=== PATIENT | male | born 1955 | race Caucasian/White ===

== ENCOUNTER 2019-12-05 12:19 | Emergency (ER) | payer MEDICARE, MEDICAID, SELFPAY ==
[2019-12-05 13:00] VITALS: BP 133/82; PULSE 86; RESP 18; TEMP 36.8; O2SAT 96; BMI 27.1
--- NOTE | 2019-12-05 13:13 | ED_ITS ---
Entered by Ping Morales, acting as scribe for Documented by User: Selma Oshea MD 01/21/20 20:37 HPI - General Adult General: Source: patient Mode of arrival: ambulatory Limitations: no limitations History of Present Illness: HPI narrative: 64 yo male presents with a sore throat and possible thrush. pt states he has had a hx of thrush. pt states this started a few days ago and increased pain. pt states he has not been on recent antibotics or any steroids. pt denies any other symptoms at this time. complaint: thrush and sore throat Onset (ago): day(s) Location: mouth Radiation: non-radiation Severity: moderate Quality: constant Pain Consistency: constant Relieving factors: none Exacerbating factors: none Associated symptoms: Reports cough and rash Treatments prior to arrival: none Review of Systems General: Reports: 10 or more systems reviewed and unremarkable except in HPI and below ENMT: Reports: throat pain and dry mouth Resp: Reports: productive cough Skin/Breast: Reports: rash Course Vital Signs: Vital signs: Vital Signs Temperature 98.3 F 12/05/19 13:00 Pulse Rate 104 H 12/05/19 16:34 Respiratory Rate 16 12/05/19 16:34 Blood Pressure 114/79 12/05/19 16:34 Pulse Oximetry 95 12/05/19 16:34 [facility] - General Adult Lab Data: Labs: Lab Results 12/05/19 Range/Units 13:44 Group A Strep Rapi d Negative (Negative) Discharge Plan Discharge Patient Disposition: Home, Self-Care Clinical Impression: Candidiasis of mouth Condition: Stable Discharge Orders: Discharge Order (Routine); Ordered 12/05/19 Ordered By: Leland Coronado Referrals: Jeremie Lee MD [Primary Care Provider] - Discharge Diet: Usual diet Discharge Activity: Resume usual activity Discharge Date/Time: 12/05/19 16:35 Coding Level of Care Code ED Equity Research Analyst for Chg Fwd Exam Problem Focused Documented by User: Leland Coronado DO 01/21/20 15:50 Physical Exam Const: COMMON NORMALS: no apparent distress GENERAL APPEARANCE: cooperative and comfortable ORIENTATION/CONSCIOUSNESS: Yes awake, Yes oriented to person, Yes oriented to place and Yes oriented to time HENMT: COMMON NORMALS: normocephalic, head/scalp atraumatic, hearing grossly normal bilaterally, external ears normal, EAC's normal, TM's normal bilaterally, nasal mucous membranes and turbinates normal, moist oral mucous membranes and oropharynx normal HEAD & SCALP: normocephalic and atraumatic NOSE: nasal mucous membranes and turbinates normal EXTERNAL EAR: Yes external ears normal EXTERNAL AUDITORY CANAL: EAC's normal TYMPANIC MEMBRANE: TM's normal bilaterally OTHER: With erythema posterior pharynx no evidence of any punctate lesions or ulcers. There is no evidence of any obvious white adherent patches suggestive of Rhea Eye: COMMON NORMALS: PERRL, EOMs intact bilaterally, conjunctivae normal and no scleral icterus CONJUNCTIVA: Yes conjunctivae normal PUPIL: Yes PERRL Neck/C-Spine: COMMON NORMALS: full ROM, no lymphadenopathy, supple and no JVD Lymph: LYMPHATIC: no lymphadenopathy noted and no lymphedema noted Resp: COMMON NORMALS: normal respiratory effort, no retractions, no use of accessory muscles and clear to auscultation bilaterally AUSCULTATION: clear to auscultation bilaterally Cardio: COMMON NORMALS: no JVD, regular rate, regular rhythm and no murmurs RATE: regular rate RHYTHM: regular rhythm GI: COMMON NORMALS: soft to palpation and no hepatosplenomegaly AUSCULTATION: Yes normoactive bowel sounds PALPATION: Yes soft, No tender, No guarding and Yes no hepatosplenomegaly Extremity: COMMON NORMALS: normal to inspection, normal capillary refill, no clubbing, cyanosis or edema, no calf tenderness and no pedal edema Neuro: SENSORIUM/ORIENTATION: Yes oriented to person, Yes oriented to place and Yes oriented to time Skin: COMMON NORMALS: no rashes or lesions noted GENERAL SKIN EXAM: no rashes or lesions noted Course ED course: Strep negative. Wet mount positive for candidiasis patient advised to use nystatin swish and spit every 6 hours 10 days. Patient seen and examined and disposition from the ER by myself. Unfortunately due to some complications with the EMR Dr. Oshea got assigned as the author of this chart she did not see the patient or examine or treat the patient in any way associated with this ER visit. Vital Signs: Vital signs: Vital Signs Temperature 98.3 F 12/05/19 13:00 Pulse Rate 104 H 12/05/19 16:34 Respiratory Rate 16 12/05/19 16:34 Blood Pressure 114/79 12/05/19 16:34 Pulse Oximetry 95 12/05/19 16:34 MDM - General Adult Lab Data: Labs: Lab Results 12/05/19 Range/Units 13:44 Group A Strep Rapi d Negative (Negative) Discharge Plan Discharge Patient Disposition: Home, Self-Care Clinical Impression: Candidiasis of mouth Condition: Stable Discharge Orders: Discharge Order (Routine); Ordered 12/05/19 Ordered By: Leland Coronado Referrals: Jeremie Lee MD [Primary Care Provider] - Discharge Diet: Usual diet Discharge Activity: Resume usual activity Discharge Date/Time: 12/05/19 16:35 Coding Level of Care Code ED Equity Research Analyst for Chg Fwd Exam Problem Focused The documentation recorded by the Andrew lane Bridget Annette, accurately reflects the service I personally performed and the decisions made by , Selma Oshea MD Dec 05, 2019 12:19
[2019-12-05 14:12] LABS: Rapid Strep A Test Negative (Negative)
[2019-12-05 16:34] VITALS: BP 114/79; PULSE 104; RESP 16; O2SAT 95
== END 2019-12-05 16:35 | disposition home or self-care (01) ==
PROVIDERS: Emergency Provider Family Medicine; Family Provider Family Medicine; PCP Family Medicine
DX: B37.0 Candidal stomatitis (principal)
CPT/HCPCS: 87081; 87210; 87880; 99281

== ENCOUNTER 2020-02-08 15:05 | Outpatient (CLI) | payer MEDICARE, MEDICAID, SELFPAY ==
--- NOTE | 2020-02-08 15:14 | USCV_ITS ---
Shimon Alvarez Age: 65 Gender: M : 1955 Exam Date: 02/08/2020 15:21 Ordering Phys: NOT ON FILE, DOCTOR XX Technologist: [place] [facility] [place]: PVD RIGHT LEFT Brachial 137.00 mmHg Brachial 124.00 mmHg Pressure (mmHg) Waveform Pressure (mmHg) Waveform 156.00 HYDROGRAPHIC SURVEYOR 134.00 113.00 DPA 137.00 1.14 Ankle/Brachial Index 1.00 111.00 Pre-Exercise Toe Pressure 132.00 0.81 Pre-Exercise Toe/Brachial Index 0.96 FINDINGS Normal resting ABIs and TBIs bilaterally CONCLUSIONS No evidence of any significant arterial obstruction, based on the above findings. Dr Berlin Liriano MD [facility] (Electronically Signed) Final Date: 11 February 2020 09:21 S
--- NOTE | 2020-02-08 16:30 | USCV_ITS ---
Shimon Alvarez Age: 65 Gender: M : 1955 Exam Date: 02/08/2020 15:47 Ordering Phys: NOT ON FILE, DOCTOR XX Technologist: Nicole Salamanca [place] [facility] [place]: HISTORY OF RT CEA Risk Factors: Previous Vascular Surgery: Right Brachial BP: / Left Brachial BP: / Right Left Velocity (cm/s) Spectral Plaque Velocity (cm/s) Spectral Plaque Syst/Diast Broadening Syst/Diast Broadening 102.50/22.10 Prox CCA 88.00 / 20.50 104.70/24.30 Mid CCA 110.20/ 28.20 89.30/ 15.40 Distal CCA 67.50 / 15.40 67.60/ 21.00 Prox ICA 81.20 / 29.90 Hetro 56.70/ 18.25 Mid ICA 191.00/ 56.30 Hetro 81.60/ 28.00 Distal ICA 105.60/ 35.70 201.50 ECA 69.20 Hetro 0.78 ICA/CCA 1.73 Antegrade Vertebral Antegrade 35.00/ 12.80 cm/s 22.20/ 11.10 cm/s Tri Subclavian Bi 94.00 147.2 0 FINDINGS Extensive atherosclerotic change of the left common carotid bifurcation. CONCLUSIONS No stenois or occlusion of the right carotid bifurcation. 60-79% stenosis of the left carotid bifurcation based on the elevated left ICA velocity of 191 cm/sec. Dr. Arianna Finley MD (Electronically Signed) Final Date: 08 February 2020 16:22 S
== END 2020-02-08 15:06 | disposition home or self-care (01) ==
LOC: RAD 15:11
PROVIDERS: Family Provider Family Medicine; PCP Family Medicine; Visit Provider Family Medicine
DX: I73.9 Peripheral vascular disease, unspecified (principal); I65.22 Occlusion and stenosis of left carotid artery
CPT/HCPCS: 93880; 93922

== ENCOUNTER → 2020-10-07 10:03 | Outpatient (BNVA) | payer MEDICARE, MEDICAID, SELFPAY | PROVIDERS: Family Provider Family Medicine; PCP Family Medicine; Visit Provider Urology | DX: R39.15 Urgency of urination (principal); N35.912 Unspecified bulbous urethral stricture, male; R33.9 Retention of urine, unspecified; N40.0 Benign prostatic hyperplasia without lower urinary tract symptoms | CPT/HCPCS: 81003 ==

== ENCOUNTER 2020-12-30 14:33 | Outpatient (CLI) | payer MEDICARE, MEDICAID, SELFPAY ==
--- NOTE | 2020-12-30 15:00 | USCV_ITS ---
Shimon Alvarez Age: 65 Gender: M : 1955 Exam Date: 12/30/2020 15:05 Ordering Phys: Lalit Herrera M.D ([email or web address]) Technologist: Sree Li Exam Location[place] [facility] [place] Indication: CAROTID STENOSIS Risk Factors: Previous Vascular Surgery: RCEA Right Brachial BP: / Left Brachial BP: / Right Left Velocity (cm/s) Spectral Plaque Velocity (cm/s) Spectral Plaque Syst/Diast Broadening Syst/Diast Broadening 114.70/16.50 Prox CCA 206.60/ 29.50 125.70/25.40 Mid CCA 155.10/ 34.20 133.40/14.30 Distal CCA 128.80/ 19.70 57.80/ 11.90 Prox ICA 222.20/ 51.80 70.20/ 18.90 Mid ICA 225.50/ 50.10 79.00/ 19.00 Distal ICA 115.00/ 12.50 241.20 ECA 57.00 0.63 ICA/CCA 1.45 Antegrade Vertebral Antegrade 51.90/ 11.80 cm/s 30.10/ 9.40 cm/s Tri Subclavian Tri 125.7 151.2 0 0 FINDINGS Comparison:. 01/10/20. Diffuse bilateral scattered calcified plaque and intimal thickening throughout the common carotid arteries and extending through the bifurcation. Moderate elevation of left ICA velocity and turbulence. Prior right CEA, no recurrent stenosis. Antegrade vertbral arteries. CONCLUSIONS Left ICA stenosis 50-69%. Right ICA stenosis < 50%. Dr. Tracy Santoyo DO (Electronically Signed) Final Date: 31 December 2020 10:33 S
== END 2020-12-30 14:34 | disposition home or self-care (01) ==
LOC: RAD 14:42
PROVIDERS: PCP Family Medicine; Visit Provider Internal Medicine
DX: I65.23 Occlusion and stenosis of bilateral carotid arteries (principal)
CPT/HCPCS: 93880

== ENCOUNTER 2021-02-13 13:09 | Outpatient (CLI) | payer MEDICARE, MEDICAID, SELFPAY ==
--- NOTE | 2021-02-13 13:18 | CT_ITS ---
WS: [id number] LDCT LUNG CANCER SCREENING TECHNIQUE: Noncontrast CT of the chest with coronal and sagittal reformatted images. CLINICAL INFORMATION: HX OF TOBACCO USE COMPARISON: CT chest 4 26,012 DLP: 54.19 mGy.cm DIvol: 1.[address] scans at [facility] use at least one of these dose optimization techniques: automat ed exposure control; mA and/or kV adjustment per patient size (includes targeted exams where dose is matched to clinical indication); or iterative reconstruction. FINDINGS: Mild chronic emphysematous changes. Bronchiectasis in the lung bases with a few inflammatory opacitie s.. A few calcified granulomas. No mediastinal or hilar lymphadenopathy. A few calcified mediastinal and hilar lymph nodes. No axillary lymphadenopathy. Coronary calcification. CT/CT lung screening 33142 IMPRESSION: LUNG-RADS: 2-Benign Appearance or Behavior FOLLOW UP: 12 Month: Continue annual screening with LDCT
== END 2021-02-13 13:10 | disposition home or self-care (01) ==
LOC: RAD 13:15
PROVIDERS: PCP Family Medicine; Visit Provider Nurse Practitioner
DX: Z12.2 Encounter for screening for malignant neoplasm of respiratory organs (principal); Z87.891 Personal history of nicotine dependence; J47.9 Bronchiectasis, uncomplicated; J84.10 Pulmonary fibrosis, unspecified; I25.10 Atherosclerotic heart disease of native coronary artery without angina pectoris
CPT/HCPCS: 71271

== ENCOUNTER → 2021-07-16 12:04 | Outpatient (BNVA) | payer MEDICARE, MEDICAID, SELFPAY | PROVIDERS: PCP Family Medicine; Visit Provider Surgery | DX: Z20.822 Contact with and (suspected) exposure to COVID-19 (principal) | CPT/HCPCS: 87635 ==

== ENCOUNTER 2021-07-21 06:11 | Day surgery (SDC) | payer MEDICARE, MEDICAID, SELFPAY ==
[2021-07-20 14:04] VITALS: BMI 27.3
[2021-07-21] VITALS (7 sets, daily range): BP systolic 80–108; BP diastolic 38–54; PULSE 60–68; RESP 12–18; TEMP 36.3–36.8; O2SAT 93–100
--- NOTE | 2021-07-21 06:08 | P.HP_ITS ---
Same Day Surgery H&P Indication for Procedure/HPI DATE OF PROCEDURE: July 21, 2021 CHIEF COMPLAINT/INDICATIONFOR SURGICAL PROCEDURE: I have a spot on my back PREOP DIAGNOSIS: Upper back skin MASS PLANNED PROCEDRUE: Operation Date: 07/21/21 07:10 Proposed Procedures p :EXCISION OF UPPER BACK AND LEFT LOWER EXTREMITY SKIN LESIONS 69738 L98.9(Left) - Luis Marte MD Mr. Alvarez is a pleasant 66 years old gentleman well-known to me from previous clinical encounters, well-known to have HIV and undergoing treatment and managem ent with HIV physician in [facility]. Presents today as a referral for a spot on his upper back and another one on the left lateral aspect of the left lower extremity concerning for skin cancer. And he is referred for potential evaluation and management. Interim history 07/21/2021 Patient comes today for excision of upper back skin mass ROS All systems have been reviewed negative except as per the above or per problem list Medications/Allergies* Home Medications Medication Instructions Recorded Confirmed Type albuterol sulfate 90 mcg/actuation 2 puff INHALATION Q6H PRN 01/28/20 07/21/21 History aerosol inhaler amitriptyline 25 mg tablet 50 mg PO .HS tab 01/28/20 07/21/21 History aspirin 81 mg tablet,delayed 81 mg PO DAILY 01/28/20 07/20/21 History release cetirizine 10 mg tablet 5 mg PO DAILY PRN 01/28/20 07/21/21 History clonazepam 0.5 mg tablet 0.5 mg PO BID 01/28/20 07/21/21 History etravirine 200 mg tablet 200 mg PO BID 01/28/20 07/21/21 History gemfibrozil 600 mg tablet 600 mg PO BID 01/28/20 07/21/21 History maraviroc 300 mg tablet 300 mg PO BID 01/28/20 07/21/21 History mirtazapine 30 mg tablet 30 mg PO DAILY 01/28/20 07/21/21 History omeprazole 20 mg capsule,delayed 20 mg PO BID 01/28/20 07/21/21 History release polysaccharide iron complex 150 mg 150 mg PO DAILY 01/28/20 07/21/21 History iron capsule quetiapine 100 mg tablet 200 mg PO DAILY tab 01/28/20 07/21/21 History tamsulosin 0.4 mg capsule 0.4 mg PO DAILY 01/28/20 07/21/21 History tiotropium bromide 18 mcg capsule 1 cap INHALATION DAILY 01/28/20 07/21/21 History with inhalation device ascorbic acid (vitamin C) 1,000 mg 500 mg PO DAILY 02/01/20 07/21/21 History tablet magnesium 250 mg tablet 250 mg PO DAILY 02/01/20 07/21/21 History raltegravir 400 mg tablet 600 mg PO BID tab 08/05/20 07/21/21 History tiotropium 2.5 mcg-olodaterol 2.5 2 puff INHALATION DAILY 08/05/20 07/21/21 History mcg/actuation mist for inhalation metformin 500 mg tablet 500 mg PO DAILY 06/15/21 07/21/21 History Allergies/Adverse Reactions Allergy/AdvReac Type Severity Reaction Status Date / Time amoxicillin Allergy ADR-Nausea Verified 06/16/21 15:49 Pertinent History/Comorbid Conditions* Medical History (Updated 06/16/21 @ 15:50 by Luis Marte MD) ASHD (arteriosclerotic heart disease) Atrial fibrillation Carotid stenosis, bilateral COPD (chronic obstructive pulmonary disease) GERD (gastroesophageal reflux disease) HIV (human immunodeficiency virus infection) HTN (hypertension) Hyperlipidemia Incomplete bladder emptying Tobacco abuse Unspecified bulbous urethral stricture, male Surgical History (Updated 02/01/20 @ 12:07 by Joseph Mccormick MD) S/P carotid endarterectomy Family History (Updated 01/28/20 @ 16:04 by Brit Doe RN) Father, AGE 85 CAD (coronary artery disease) Grandfather PATERNAL Hyperlipidemia Father Stroke Father Social History Smoking and tobacco status: former smoker Second hand smoke exposure: Yes Alcohol intake: current Alcohol intake frequency: 3 or more drinks per day Alcohol type: beer Adopted: No Caregiver/support person: No Lives independently: Yes Marital status: Current occupational status: disabled Pertinent Exam Findings alert, oriented x 3, operative site marked (Upper back mass) and procedure specific exam findings (Upper back mass about centimeter in diameter or so slightly elevated above ) Pertinent Data PERTINENT DATA: The upper back mass is slightly elevated above the surface of the skin with about 0.2 mm, dark in color Recommendations Surgery/Procedure today (Excision of upper back mass) Coding Level of Care Code Acute Liquor Blender for [facility] Jaspal
[2021-07-21] MEDS: sodium chloride 0.9% 1,000 ML 30 ML IV (06:46)
--- NOTE | 2021-07-21 06:47 | ECG_ITS ---
[facility] Test Date: 2021-07-21 Pat Name: Shimon Alvarez Department: Room: Gender: Male [place]: : 1955 Requested By: Hermes Thompson Order Number: [id number] Marvel MD: Lalit Herrera M.D. Measurements Intervals [place] Rate: 54 P: VT: QRS: 80 QRSD: 110 T: 74 QT: 438 QTc: 416 Interpretive Statements ATRIAL FIBRILLATION WITH SLOW VENTRICULAR RESPONSE ABNORMAL RHYTHM ECG Compared to ECG 03/09/2016 12:02:22 T-wave abnormality no longer present Possible ischemia no longer present Electronically Signed On 07-21-2021 17:11:14 CDT by Lalit Herrera M.D. [id number]
--- NOTE | 2021-07-21 06:55 | ANES.PREANE2 ---
Pre-Anesthetic Assessment Pre-Anesthetic Assessment: Height/Weight: Height 1.75 m Weight 83.915 kg Temp Pulse Resp BP Pulse Ox 98.2 F 68 18 108/39 94 07/21/21 06:35 07/21/21 06:35 07/21/21 06:35 07/21/21 06:35 07/21/21 06:35 Preop Diagnosis: Upper back and left lower extremity skin lesion Proposed Procedure: Operation Date: 07/21/21 07:10 Proposed Procedures p :EXCISION OF UPPER BACK AND LEFT LOWER EXTREMITY SKIN LESIONS 39999 L98.9(Left) - Luis Marte MD Was Beta Len taken within 24 hours: N/A Was Clonidine taken within 24 hours: N/A Last intake: Intake Last Liquid Date 07/21/21 Last Liquid Time 05:00 Last Solid Date 07/20/21 Last Solid Time 19:00 Social: Social History: Alcohol and Tobacco Exam: Pre-Anes Outpt Exam: alert and oriented x 3 Additional Exam Findings (including area of procedure): Irregular Airway: Submandibular: WNL Cervical ROM: WNL Dentition: False Additional comments: heavy doty Pulmonary: Pulmonary: COPD CV/HEM: CV/HEM: Afib, HTN and PVD Comments: HIV GI: GI: GERD Metabolic: Metabolic: DM and Hyperlipidemia Anesthetic Plan: ASA status: 3 Anesthesia: MAC Risk of > 500 ml blood loss (7ml/kg in children): No Meds/Allergies Current Medications: Current Medications Generic Name Dose Route Start Last Admin Trade Name Freq PRN Reason Stop Dose Admin Sodium Chloride 1,000 mls @ 30 ml s/hr 07/21/21 06:30 07/21/21 06:46 Sodium Chloride 0.9% IV 07/22/21 06:29 30 mls/hr .Q24H MAMADOU Administration PFSH Anesthesia PFSH: Medical History ASHD (arteriosclerotic heart disease) Atrial fibrillation Carotid stenosis, bilateral COPD (chronic obstructive pulmonary disease) GERD (gastroesophageal reflux disease) HIV (human immunodeficiency virus infection) HTN (hypertension) Hyperlipidemia Incomplete bladder emptying Tobacco abuse Unspecified bulbous urethral stricture, male Surgical History S/P carotid endarterectomy Family History Father , AGE 85 Stroke Hyperlipidemia Grandmother No problems noted. Grandfather CAD (coronary artery disease) PATERNAL Social History Smoking and tobacco status: former smoker Second hand smoke exposure: Yes Alcohol intake: current Alcohol intake frequency: 3 or more drinks per day Alcohol type: beer Adopted: No Caregiver/support person: No Lives independently: Yes Marital status: Current occupational status: disabled Data Anesthesia Cardiac Studies: No Data to Display
[2021-07-21] MEDS: clindamycin 900 MG/50 ML PREMIX 100 MG IV (07:00)
[2021-07-21] MEDS: lidocaine 2% INJ 20 mL (07:25)
--- NOTE | 2021-07-21 07:32 | P.OP_ITS ---
Operative Report Date of procedure: July 21, 2021 Pre-op Diagnosis: Upper back and left lower extremity skin lesion Post-op diagnosis: same Procedure Done: 1-Excision of upper back mass 2-Elevation of superior and inferior skin and subcutaneous flapS Specimens removed/disposition: Measurement of the lesion 1.5 x 1.1 cm The skin ellipse measures about 7 x 1.5 cm and thickness of a centimeter Specimen orientation short sutures superior and long sutures marked left lateral Surgeon: Luis Marte Supervisor Machine Setter: semiconductor technician Tanisha Neal nurse Zelda Anesthesia: MAC (fiberglass ski maker Nirav) Estimated blood loss (mL): 5 Condition: stable Disposition: same day Brief History: Upper back mass concerning for skin cancer with HIV positive history. Procedure: After identifying the patient holding area, the correct site and side was marked before the procedure by myself, patient was then taken to the operative suite, was placed in first in supine position, then the patient was placed in left lateral position were all pressure points were padded and patient was appropriately secured to the bed. IV propofol was infused by the anesthesia provider ,Timeout was done verifying the patient's name/date of /planned procedure and destination after the procedure, all were in agreement. SCDs confirmed to be functioning, preoperative antibiotics administered per protocol, and beta cinda protocol was confirmed Prep and drape of the upper back was done under the usual sterile technique. Local anesthesia 2% lidocaine was infiltrated site of the incision, elliptical skin incision was done including the upper back mass mass with safety margin 5 mm at least,incision was done all the way down to the subcutaneous tissues dissection was then carried on , the mass was oriented by 3-0 nylon sutures in the form of short superior and long left lateral sutures. Elevation of superior and inferior skin flaps including skin and subcutaneous were created in order to close the wound without applying tension ,Hemostasis was achieved using Bovie cautery, followed by closure using 2-0 Vicryl were used as an continue subdermal sutures and a continue 2-0 nylon interrupted was used, followed by triple antibiotic ointment, then followed by pressure dressing Count was completed at the end of the procedure Patient was taken to the recovery room in stable condition I was present for the whole entire procedure
[2021-07-21] MEDS: neomycin-poly-bacitracin oint 28 gm 28 APPLIC (07:33)
--- NOTE | 2021-07-21 07:46 | P.PCN_ITS ---
PACU note PACU note: VSS, Good respiratory effort, report to POULTRY CUTTER Post-Anesthesia Exam: awake
--- NOTE | 2021-07-21 07:46 | PM.PACU ---
PACU note PACU note: VSS, Good respiratory effort, report to ACCOUNT MANAGER RELIEF Post-Anesthesia Exam: awake
--- NOTE | 2021-07-21 15:59 | ANE.PACU2 ---
Inpatient post-anesthesia follow up: Airway intact: Yes Vital signs: Temperature 97.4 F Pulse Rate 68 Respiratory Rate 18 Blood Pressure 101/54 Pulse Oximetry 93 Oxygen Delivery Me thod Room Air Oxygen Flow Rate 6 Fraction of Inspir ed Oxygen Hydration adequate: Yes Nausea and vomiting: No Pain level: 2 Mental status: Baseline
[2021-07-22 06:01] LABS: Glucose Point of Care 104 mg/dL (70-110)
== END 2021-07-21 08:45 | disposition home or self-care (01) ==
PROVIDERS: PCP Family Medicine; Visit Provider Surgery
PROC: (CPT 14000; principal; 2021-07-21 07:00)
DX: C44.519 Basal cell carcinoma of skin of other part of trunk (principal); B20 Human immunodeficiency virus [HIV] disease; Z79.82 Long term (current) use of aspirin; I48.91 Unspecified atrial fibrillation; J44.9 Chronic obstructive pulmonary disease, unspecified; K21.9 Gastro-esophageal reflux disease without esophagitis; I10 Essential (primary) hypertension; F17.210 Nicotine dependence, cigarettes, uncomplicated; Z82.49 Family history of ischemic heart disease and other diseases of the circulatory system; E11.9 Type 2 diabetes mellitus without complications; E78.5 Hyperlipidemia, unspecified
CPT/HCPCS: 14000; 36416; 82962; 88304; 88307; 93005; J2250; J2704; J3010; J3490; J7030

== ENCOUNTER → 2022-02-12 10:48 | Outpatient (BNVA) | payer MEDICARE, MEDICAID, SELFPAY | PROVIDERS: PCP Family Medicine; Visit Provider Internal Medicine | DX: I65.23 Occlusion and stenosis of bilateral carotid arteries (principal); E78.5 Hyperlipidemia, unspecified; I10 Essential (primary) hypertension | CPT/HCPCS: 99214 ==

== ENCOUNTER 2022-05-18 08:08 | Outpatient (CLI) | payer MEDICARE, MEDICAID, SELFPAY ==
--- NOTE | 2022-05-18 08:00 | USCV_ITS ---
Shimon Alvaerz Age: 67 Gender: M : 1955 Exam Date: 05/18/2022 08:19 Ordering Phys: Lalit Herrera M.D ([email or web address]) Technologist: CHARLIE Exam Location: [facility] [place] Indication: rt side endart Risk Factors: Previous Vascular Surgery: Right Brachial BP: / Left Brachial BP: / Right Left Velocity (cm/s) Spectral Plaque Velocity (cm/s) Spectral Plaque Syst/Diast Broadening Syst/Diast Broadening 104.70/14.30 Prox CCA 128.70/ 32.50 101.40/101.40 Mid CCA 128.70/ 16.30 80.50/ 7.70 Distal CCA 85.30 / 12.20 Hetro 84.70/ 14.10 Prox ICA 244.30/ 59.60 Hetro 92.50/ 25.10 Mid ICA 168.80/ 37.70 Hetro 91.00/ 22.00 Distal ICA 149.00/ 23.80 136.40 ECA 31.70 0.88 ICA/CCA 1.90 Antegrade Vertebral Antegrade 46.00/ 8.10 cm/s 38.40/ 9.60 cm/s Tri Subclavian Bi 151.7 178.8 0 0 CONCLUSIONS Right ICA stenosis <50%. Mild atheromatous plaque right carotid bulb/ICA. Left ICA stenosis 70-99%. Moderate calcified atheromatous plaque left carotid bulb/ICA. Recommend further evaluation with CTA This is progressed since 2020 Normal antegrade Doppler flow noted in the left vertebral artery. Normal antegrade Doppler flow noted in the right vertebral artery. Cristian Tidwell MD (Electronically Signed) Final Date: 18 May 2022 09:24 S
== END 2022-05-18 08:09 | disposition home or self-care (01) ==
LOC: RAD 08:11
PROVIDERS: PCP Family Medicine; Visit Provider Internal Medicine
DX: I65.23 Occlusion and stenosis of bilateral carotid arteries (principal)
CPT/HCPCS: 93880

== ENCOUNTER → 2022-06-04 10:26 | Outpatient (BNVA) | payer MEDICARE, MEDICAID, SELFPAY | PROVIDERS: PCP Family Medicine; Visit Provider Nurse Practitioner Family | DX: R33.9 Retention of urine, unspecified (principal); R82.81 Pyuria; N35.912 Unspecified bulbous urethral stricture, male; N30.00 Acute cystitis without hematuria | CPT/HCPCS: 51741; 51798; 81003; 87086; 87186; 99213 ==

== ENCOUNTER → 2022-07-05 10:47 | Outpatient (BNVA) | payer MEDICARE, MEDICAID, SELFPAY | PROVIDERS: PCP Family Medicine; Visit Provider Nurse Practitioner Family | DX: N30.00 Acute cystitis without hematuria (principal); R82.81 Pyuria | CPT/HCPCS: 81003; 87077; 87086; 87186; 99213 ==

== ENCOUNTER 2022-08-11 10:13 | Outpatient (CLI) | payer MEDICARE, MEDICAID, SELFPAY ==
--- NOTE | 2022-08-11 10:30 | CT_ITS ---
WS: [id number] CTA NECK TECHNIQUE: Contrast enhanced CTA of the neck with coronal and sagittal reformatted images and maximum intensity projection (MIP) images. NASCET criteria utilized. CLINICAL INFORMATION: carotid stenosis, bilateral COMPARISON: CTA and ultrasound May 18, 2022 DLP: 358.[address] scans at [facility] use at least one of these dose optimization techniques: automated e xposure control; mA and/or kV adjustment per patient size (includes targeted exams where dose is matc hed to clinical indication); or iterative reconstruction. FINDINGS: RIGHT: RIGHT common carotid artery is patent. Prior RIGHT carotid endarterectomy. No recurrent RIGHT cervical ICA stenosis. LEFT: LEFT common carotid artery is patent. Eccentric plaque in the LEFT common carotid artery with a pproximately 40% stenosis. Moderate atheromatous plaque LEFT carotid bulb extending to the ICA. LEFT ICA stenosis measures 70%. High-grade stenosis with occlusion at the ECA origin which reconstitutes p roximally. Moderate to severe calcification RIGHT vertebral artery origin. RIGHT dominant vertebral artery. Smal ler but patent LEFT vertebral artery. Basilar artery is patent. Intracranial vertebral artery calcifi cation. Vertebral arteries are patent to the basilar junction. Diminutive basilar artery with anterio r dominant circulation. Moderate cavernous carotid calcification. Normal vascularity to the [employer] jaime tory bilaterally. Mild to moderate RIGHT greater than LEFT petrous and cavernous carotid calcificatio n. Cavernous carotid arteries are patent. Calcified supraclinoid ICAs. Anterior circulation not completely included on this neck CTA. Mild mucosal thickening in the paranasal sinuses. Mastoid air cells are well aerated. Moderate emphys ematous changes in the lung apices. Normal posterior nasopharynx. Normal parapharyngeal fat. Moderate spondylitic changes cervical spine. Disc space narrowing worse at C3-C4 with slight retrolisthesis. Normal visualized intracranial contents. CT/CT angio neck 24415 IMPRESSION: 1. Prior postoperative changes RIGHT carotid endarterectomy. No recurrent sten osis. 2. Moderate calcified atheromatous plaque LEFT carotid bulb extending into the ICA with approximately 70% stenosis. This is progressed compared to previous. Stenosis is approximately 1.2 cm distal to the bifurcation. 3. Eccentric plaque in the LEFT common carotid artery with approximately 40% s tenosis. LEFT common carotid artery remains patent. 4. RIGHT dominant vertebral artery with moderate to severe calcified stenosis at the origin. Smaller but patent LEFT vertebral artery. Both vertebral arterie s are patent to the vertebrobasilar junction. 5. Somewhat diminutive basilar artery with dominant anterior circulation parti ally visualized. Patent posterior communicating arteries bilaterally. Normal vi sualized vascularity to the proximal [employer]ER territory 6. Moderate calcified atheromatous plaque with moderate to severe stenosis in the RIGHT subclavian artery distal to the takeoff of the RIGHT vertebral artery . Distal subclavian and axillary arteries remain patent.
[2022-08-11 10:46] LABS: Blood Urea Nitrogen 11 mg/dL (8-23); Glomerular Filtration Rate 66.6 mL/min (90-130)
[2022-08-11] MEDS: iohexol 350 mg/mL 100 mL Btl IV (11:00)
== END 2022-08-11 10:14 | disposition home or self-care (01) ==
PROVIDERS: PCP Family Medicine; Visit Provider Internal Medicine
DX: I65.23 Occlusion and stenosis of bilateral carotid arteries (principal); I70.8 Atherosclerosis of other arteries
CPT/HCPCS: 70498; 82565; 84520

== ENCOUNTER → 2022-09-14 13:19 | Outpatient (BNVA) | payer MEDICARE, MEDICAID, SELFPAY | PROVIDERS: PCP Family Medicine; Visit Provider Thoracic Surgery (Cardiothoracic Vascular Surgery) | DX: I65.22 Occlusion and stenosis of left carotid artery (principal); Z87.891 Personal history of nicotine dependence; I10 Essential (primary) hypertension | CPT/HCPCS: 99203 ==

== ENCOUNTER → 2022-10-07 10:44 | Outpatient (BNVA) | payer MEDICARE, MEDICAID, SELFPAY | PROVIDERS: PCP Family Medicine; Visit Provider Urology | DX: N35.912 Unspecified bulbous urethral stricture, male (principal); N30.00 Acute cystitis without hematuria; R35.89 Other polyuria | CPT/HCPCS: 81003; 99213 ==

== ENCOUNTER 2022-10-15 06:00 | Outpatient (CLI) | payer MEDICARE, MEDICAID, SELFPAY | END 2022-10-15 06:01 | disposition home or self-care (01) | LOC: LAB 11-26 09:52 | PROVIDERS: PCP Family Medicine; Visit Provider Family Medicine | DX: Z01.89 Encounter for other specified special examinations (principal) | CPT/HCPCS: 86870 ==

== ENCOUNTER 2022-10-31 12:56 | Outpatient (CLI) | payer MEDICARE, MEDICAID, SELFPAY ==
[2022-10-31 13:29] LABS: Basophils % 0.4 %; Eosinophils # 0.2 10^3/uL (0.0-0.8); Eosinophils % 2.2 %; Hematocrit 39.4 % (42.0-52.0); Hemoglobin 13.2 g/dL (11.7-16.6); Lymphocytes # 2.9 10^3/uL (0.8-4.8); Lymphocytes % 34.8 %; Mean Corpuscular HGB Conc 33.5 g/dL (30.0-36.0); Mean Corpuscular Hemoglobin 29.9 pg (28.0-34.0); Mean Corpuscular Volume 89.1 fl (80-94); Mean Platelet Volume 9.9 fL (7.4-10.4); Monocytes # 0.6 10^3/uL (0.2-0.9); Neutrophils # 4.59 10^3/uL (1.8-7.7); Nucleated Red Blood Cells % 0 %; Platelet Count 215 10^3/cmm (130-400); Red Blood Count 4.42 10^6/uL (4.1-5.3); White Blood Count 8.3 10^3/uL (4.0-10.0)
[2022-10-31 13:54] LABS: Alanine Aminotransferase 16 U/L (0-41); Albumin Level 4.7 g/dL (3.5-5.2); Alkaline Phosphatase 85 U/L (40-130); Anion Gap 16.2 (5-19); Aspartate Amino Transferase 21 U/L (0-40); Blood Urea Nitrogen 11 mg/dL (8-23); Calcium 9.9 mg/dL (8.5-10.5); Carbon Dioxide 22 mmol/L (22-29); Chloride 100 mmol/L (98-107); Globulin 3.8 g/dL (1.3-4.6); Glomerular Filtration Rate 74.3 mL/min (90-130); Glucose 183 mg/dL (65-115); Osmolality Calculated 282 mOsm/kg (285-295); Potassium 4.2 mmol/L (3.5-5.1); Sodium 134 mmol/L (136-145); Total Bilirubin 0.3 mg/dL (0.15-1.2); Total Protein 8.5 g/dL (6.6-8.7)
[2022-11-03 11:48] LABS: Absolute CD4+Cells 465 cells/uL (490-1740); Absolute Lymphocytes 2914 cells/uL (850-3900); Percent CD4 16 % (30-61)
== END 2022-10-31 12:57 | disposition home or self-care (01) ==
PROVIDERS: PCP Family Medicine; Visit Provider Family Medicine
DX: Z01.89 Encounter for other specified special examinations (principal)
CPT/HCPCS: 36415; 80053; 85025; 86361; 86870

== ENCOUNTER 2022-11-02 09:40 | Inpatient (IN) | payer MEDICARE, MEDICAID, SELFPAY ==
[2022-10-28 11:33] VITALS: BMI 24.3
--- NOTE | 2022-10-28 11:52 | ECG_ITS ---
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 Measurements Intervals [place] Rate: 63 P: 0 KS: 0 QRS: 89 QRSD: 97 T: 0 QT: 256 QTc: 263 Interpretive Statements ATRIAL FIBRILLATION NONSPECIFIC ST & T-WAVE ABNORMALITY ABNORMAL RHYTHM ECG Compared to ECG 07/21/2021 06:55:09 T-wave abnormality now present Electronically Signed On 10-28-2022 19:06:24 REFRACTORY MIXER by Parul Osman M.D. [email or web address] [email or web address] Corpselect medical clevel[facility] rehabilitation hospital, beachwoodRadisys/store/OM/[id number]
--- NOTE | 2022-10-28 12:26 | P.ANESASSM_ITS ---
Pre-Anesthetic Assessment Height/Weight: Height 1.75 m Weight 74.843 kg Preop Diagnosis: Left carotid artery stenosis Operation Date: 11/02/22 07:40 Proposed Procedures p Left Carotid Endarterectomy 38127,I65.22(Left) - Justino Balderas MD Familial anesthetic complications: none Was Beta Len taken within 24 hours: Yes Social Tobacco (armone) and No alcohol Exam alert and oriented x 3 irreg Airway Submandibular: within normal limits Cervical ROM: within normal limits Mallampati: Class II Dentition: false Pulmonary Chronic Obstructive Pulmonary Disease CV/HEM Atrial Fibrillation, Anemia, Coronary Artery Disease, Hypertension and Peripheral Vascular Disease HIV CT/CT angio neck 90349 IMPRESSION: ? 1.? Prior postoperative changes RIGHT carotid endarterectomy. No recurrent stenosis. 2.? Moderate calcified atheromatous plaque LEFT carotid bulb extending into the ICA with approximately 70% stenosis. This is progressed compared to previous. Stenosis is approximately 1.2 cm distal to the bifurcation. 3.? Eccentric plaque in the LEFT common carotid artery with approximately 40% stenosis. LEFT common carotid artery remains patent. 4.? RIGHT dominant vertebral artery with moderate to severe calcified stenosis at the origin. Smaller but patent LEFT vertebral artery. Both vertebral arteries are patent to the vertebrobasilar junction. 5.? Somewhat diminutive basilar artery with dominant anterior circulation partially visualized. Patent posterior communicating arteries bilaterally. Normal visualized vascularity to the proximal [employer] territory 6.? Moderate calcified atheromatous plaque with moderate to severe stenosis in the RIGHT subclavian artery distal to the takeoff of the RIGHT vertebral artery. Distal subclavian and axillary arteries remain patent. ? GI Gastroesophageal Reflux Disease Metabolic Diabetes Mellitus and Hyperlipidemia Neuropsych Anxiety Anesthetic Plan ASA status: 3 Anesthesia: General Other: A.line Medications/Allergies Home Medications Medication Instructions Recorded Confirmed Last Taken Type albuterol sulfate 90 mcg/actuation 2 puff inhalation Q6H PRN Allergy 01/28/20 10/28/22 10/27/22 History aerosol inhaler (ProAir HFA) Symptoms amitriptyline 25 mg tablet 50 mg PO .HS 01/28/20 10/28/22 10/27/22 History aspirin 81 mg tablet,delayed 81 mg PO DAILY 01/28/20 10/28/22 10/27/22 History release (Aspir-) cetirizine 10 mg tablet 5 mg PO DAILY PRN Allergic Symptoms 01/28/20 10/28/22 10/27/22 History clonazepam 0.5 mg tablet 0.5 mg PO BID 01/28/20 10/28/22 10/27/22 History etravirine 200 mg tablet 200 mg PO BID 01/28/20 10/28/22 10/27/22 History (Intelence) gemfibrozil 600 mg tablet 600 mg PO BID 01/28/20 10/28/22 10/27/22 History maraviroc 300 mg tablet (Selzentry) 300 mg PO BID 01/28/20 10/28/22 10/27/22 History mirtazapine 30 mg tablet 30 mg PO DAILY 01/28/20 10/28/22 10/27/22 History omeprazole 20 mg capsule,delayed 20 mg PO BID 01/28/20 10/28/22 10/27/22 History release polysaccharide iron complex 150 mg 150 mg PO DAILY 01/28/20 10/28/22 10/27/22 History iron capsule (Ferrex) quetiapine 100 mg tablet (Seroquel) 200 mg PO DAILY 01/28/20 10/28/22 10/27/22 History tamsulosin 0.4 mg capsule (Flomax) 0.4 mg PO DAILY 01/28/20 10/28/22 10/27/22 History tiotropium bromide 18 mcg capsule 1 cap inhalation DAILY 01/28/20 10/28/22 10/27/22 History with inhalation device (Spiriva with HandiHaler) ascorbic acid (vitamin C) 1,000 mg 500 mg PO DAILY 02/01/20 10/28/22 10/27/22 History tablet magnesium 250 mg tablet 250 mg PO DAILY 02/01/20 10/28/22 10/27/22 History raltegravir 400 mg tablet 600 mg PO BID 08/05/20 10/28/22 10/27/22 History (Isentress) tiotropium 2.5 mcg-olodaterol 2.5 2 puff inhalation DAILY 08/05/20 10/28/22 10/27/22 History mcg/actuation mist for inhalation (Stiolto Respimat) metformin 500 mg tablet 500 mg PO DAILY 06/15/21 10/28/22 10/27/22 History calcium phosphate-vitamin D3 600 600 tab PO DAILY 08/12/21 10/28/22 10/27/22 History mg-125 unit tablet mecobalamin (vitamin B12) 1,000 1,000 mcg PO DAILY 08/12/21 10/28/22 10/27/22 History mcg chewable tablet (B12 Active) doxazosin 2 mg tablet 2 mg PO DAILY #90 tabs 01/15/22 10/28/22 10/27/22 Rx digoxin 125 mcg (0.125 mg) tablet 125 mcg PO DAILY #90 tabs 03/11/22 10/28/22 10/27/22 Rx metoprolol tartrate 100 mg tablet 100 mg PO BID 3 months #180 tabs 04/08/22 10/28/22 10/27/22 Rx atorvastatin 40 mg tablet 40 mg PO DAILY #90 tabs 07/02/22 10/28/22 10/27/22 Rx ketoconazole 2 % topical cream 1 applic topical BID #30 grams 08/03/22 10/07/22 Unknown Rx Allergies Allergy/AdvReac Type Severity Reaction Status Date / Time amoxicillin Allergy ADR-Nausea Verified 10/28/22 11:20 [facility] Anesthesia Medical History (Updated 10/07/22 @ 11:38 by William Villar MD) Abnormal prostate exam ASHD (arteriosclerotic heart disease) Atrial fibrillation Basal cell carcinoma Benign prostatic hyperplasia without lower urinary tract symptoms Carotid stenosis, bilateral COPD (chronic obstructive pulmonary disease) Diabetes Dysuria GERD (gastroesophageal reflux disease) HIV (human immunodeficiency virus infection) HTN (hypertension) Hyperlipidemia Incomplete bladder emptying Male circumcision Polyuria Tobacco abuse Unspecified bulbous urethral stricture, male Urgency of urination Surgical History History of rectal surgery S/P carotid endarterectomy S/P hip replacement Family History Father , AGE 85 Stroke Hyperlipidemia Grandmother No problems noted. Grandfather CAD (coronary artery disease) PATERNAL Social History Smoking and tobacco status: former smoker Quit status (tobacco): has quit using tobacco Year quit tobacco: 1994 Former quit date comment: 1.5 pack per day x 35 yr Second hand smoke exposure: Yes Alcohol intake: current Alcohol intake frequency: 3 or more drinks per day Alcohol type: beer Adopted: No Caregiver/support person: No Lives independently: Yes Marital status: Current occupational status: disabled History of recent travel: No Data Anesthesia Cardiac Studies: No Data to Display
[2022-10-28 12:47] LABS: Basophils # 0.1 10^3/uL (0.0-0.1); Basophils % 0.6 %; Eosinophils # 0.2 10^3/uL (0.0-0.8); Lymphocytes # 3.4 10^3/uL (0.8-4.8); Lymphocytes % 39.4 %; Mean Corpuscular HGB Conc 32.5 g/dL (30.0-36.0); Mean Corpuscular Hemoglobin 29.2 pg (28.0-34.0); Mean Corpuscular Volume 89.9 fl (80-94); Mean Platelet Volume 10.4 fL (7.4-10.4); Monocytes # 0.6 10^3/uL (0.2-0.9); Monocytes % 7.2 %; Neutrophils # 4.27 10^3/uL (1.8-7.7); Neutrophils % 49.6 %; Nucleated Red Blood Cells % 0 %; Platelet Count 216 10^3/cmm (130-400); Red Blood Count 4.45 10^6/uL (4.1-5.3); Red Cell Distribution Width 13.2 % (12.1-15.1); White Blood Count 8.6 10^3/uL (4.0-10.0)
[2022-10-28 12:58] LABS: Add Urine Microscopic? YES; Bacteria Urine TRACE /hpf; Bilirubin Urine Neg (Negative); Blood Urine Trace (Negative); Glucose Urine UA Norm (Normal); Ketones Urine Negative (Negative); Leukocyte Esterase Urine 2+ (Negative); Nitrate Urine Negative (Negative); Protein Urine Neg (Negative); Squamous Epithelial Cell Urine 0-4 /hpf (0-5); Urine Appearance Clear (CLEAR); Urine Color Yellow (Yellow); Urobilinogen Urine Norm (Negative); WBC Urine TOO NUMEROUS TO CNT /hpf (0-5); pH Urine 6.5 (5-7)
[2022-10-28 12:59] LABS: Add Urine Culture? Yes
[2022-10-28 13:12] LABS: Blood Urea Nitrogen 15 mg/dL (8-23); Calcium 10.3 mg/dL (8.5-10.5); Carbon Dioxide 22 mmol/L (22-29); Chloride 100 mmol/L (98-107); Glomerular Filtration Rate 83.9 mL/min (90-130); Glucose 109 mg/dL (65-115); Osmolality Calculated 279 mOsm/kg (285-295); Sodium 134 mmol/L (136-145)
[2022-11-02] VITALS (154 sets, daily range): BP systolic 93–150; BP diastolic 45–80; PULSE 31–79; RESP 8–29; TEMP 36.2–37; O2SAT 92–100
[2022-11-02] MEDS: sodium chloride 0.9% 1,000 ML 30 ML IV (05:50)
[2022-11-02 05:52] LABS: Glucose Point of Care 117 mg/dL (70-110)
--- NOTE | 2022-11-02 06:20 | PM.HP ---
Providers/Chief Complaint Admitting Physician: Dr. Balderas/cardiothoracic surgery Primary Care Provider: Jeremie Lee MD Chief Complaint: I65.22 History of Present Illness Shimon Alvarez is a 67 year old male who presents today for planned elective left carotid endarterectomy due to a 70% left ICA stenosis approximate 1.2 cm distal to the bifurcation. He is asymptomatic. He is status post right carotid endarterectomy previously by Dr. Villatoro. He has a substantial history of what he describes as daily alcohol and marijuana use. He has had no recent neurologic events. I saw him originally upon referral back on September 14. Surveillance carotid duplex studies have revealed slowly increasing velocities on the left side. Peak velocity 191 cm/s in the left ICA in January 2020, which increased to 225 cm/s by December 2020. In April of this year peak velocity had increased to 244 cm/s, prompting CTA of the neck on August 11, which revealed a 70% lesion in the left ICA. Rationale for elective carotid endarterectomy to reduce his statistical increased risk for spontaneous CVA was carefully discussed. This is a similar indication as to when he had his prior right carotid surgery. He does wish to proceed. Review of Systems Const: Denies: fever(s), chills, change in appetite, change in weight, fatigue or night sweats Eyes: Denies: change in vision or blurry vision ENMT: Denies: odynophagia or hoarseness Card: Denies: chest pain, palpitations, irregular heart rhythm or edema Resp: Denies: dyspnea or productive cough GI: Denies: abdominal pain, nausea, vomiting, dysphagia, heartburn or change in bowel habits : Denies: difficulty urinating, dysuria or urinary frequency Musc: Denies: extremity pain or extremity swelling Skin/Breast: Denies: rash Neuro: Denies: headache(s), numbness in extremities, weakness in extremities or sensory changes Psych: Denies: anxiety, depression or change in appetite Endo: Denies: polyuria or polydipsia Christopher/Lymph: Denies: easy bruising, easy bleeding, petechiae or enlarged lymph nodes Medications/Allergies Home Medications Medication Instructions Recorded Confirmed Last Taken Type albuterol sulfate 90 mcg/actuation 2 puff inhalation Q6H PRN Allergy 01/28/20 10/28/22 10/27/22 History aerosol inhaler (ProAir HFA) Symptoms amitriptyline 25 mg tablet 50 mg PO .HS 01/28/20 11/02/22 11/01/22 History aspirin 81 mg tablet,delayed 81 mg PO DAILY 01/28/20 10/28/22 10/27/22 History release (Aspir-) cetirizine 10 mg tablet 5 mg PO DAILY PRN Allergic Symptoms 01/28/20 10/28/22 10/27/22 History clonazepam 0.5 mg tablet 0.5 mg PO BID 01/28/20 11/02/22 11/01/22 History etravirine 200 mg tablet 200 mg PO BID 01/28/20 11/02/22 11/01/22 History (Intelence) gemfibrozil 600 mg tablet 600 mg PO BID 01/28/20 11/02/22 11/01/22 History maraviroc 300 mg tablet (Selzentry) 300 mg PO BID 01/28/20 11/02/22 11/01/22 History mirtazapine 30 mg tablet 30 mg PO DAILY 01/28/20 11/02/22 11/01/22 History omeprazole 20 mg capsule,delayed 20 mg PO BID 01/28/20 11/02/22 11/01/22 History release polysaccharide iron complex 150 mg 150 mg PO DAILY 01/28/20 11/02/22 11/01/22 History iron capsule (Ferrex) quetiapine 100 mg tablet (Seroquel) 200 mg PO DAILY 01/28/20 11/02/22 11/01/22 History tamsulosin 0.4 mg capsule (Flomax) 0.4 mg PO DAILY 01/28/20 11/02/22 11/01/22 History tiotropium bromide 18 mcg capsule 1 cap inhalation DAILY 01/28/20 11/02/22 11/01/22 History with inhalation device (Spiriva with HandiHaler) ascorbic acid (vitamin C) 1,000 mg 500 mg PO DAILY 02/01/20 11/02/22 11/01/22 History tablet magnesium 250 mg tablet 250 mg PO DAILY 02/01/20 11/02/22 11/01/22 History raltegravir 400 mg tablet 600 mg PO BID 08/05/20 11/02/22 11/01/22 History (Isentress) tiotropium 2.5 mcg-olodaterol 2.5 2 puff inhalation DAILY 08/05/20 10/28/22 10/27/22 History mcg/actuation mist for inhalation (Stiolto Respimat) metformin 500 mg tablet 500 mg PO DAILY 06/15/21 11/02/22 11/01/22 History calcium phosphate-vitamin D3 600 600 tab PO DAILY 08/12/21 11/02/22 11/01/22 History mg-125 unit tablet mecobalamin (vitamin B12) 1,000 1,000 mcg PO DAILY 08/12/21 11/02/22 11/01/22 History mcg chewable tablet (B12 Active) doxazosin 2 mg tablet 2 mg PO DAILY #90 tabs 01/15/22 11/02/22 11/01/22 Rx digoxin 125 mcg (0.125 mg) tablet 125 mcg PO DAILY #90 tabs 03/11/22 11/02/22 11/01/22 Rx metoprolol tartrate 100 mg tablet 100 mg PO BID 3 months #180 tabs 04/08/22 11/02/22 11/01/22 21:00 Rx atorvastatin 40 mg tablet 40 mg PO DAILY #90 tabs 07/02/22 11/02/22 11/01/22 Rx ketoconazole 2 % topical cream 1 applic topical BID #30 grams 08/03/22 11/02/22 11/01/22 Rx Allergies Allergy/AdvReac Type Severity Reaction Status Date / Time amoxicillin Allergy ADR-Nausea Verified 11/02/22 05:37 PFSH Acute PFSH: Medical History Abnormal prostate exam ASHD (arteriosclerotic heart disease) Atrial fibrillation Basal cell carcinoma Benign prostatic hyperplasia without lower urinary tract symptoms Carotid stenosis, bilateral COPD (chronic obstructive pulmonary disease) Diabetes Dysuria GERD (gastroesophageal reflux disease) HIV (human immunodeficiency virus infection) HTN (hypertension) Hyperlipidemia Incomplete bladder emptying Male circumcision Polyuria Tobacco abuse Unspecified bulbous urethral stricture, male Urgency of urination Surgical History History of rectal surgery S/P carotid endarterectomy S/P hip replacement Family History Father , AGE 85 Stroke Hyperlipidemia Grandmother No problems noted. Grandfather CAD (coronary artery disease) PATERNAL Social History Smoking and tobacco status: former smoker Quit status (tobacco): has quit using tobacco Year quit tobacco: 1994 Former quit date comment: 1.5 pack per day x 35 yr Second hand smoke exposure: Yes Alcohol intake: current Alcohol intake frequency: 3 or more drinks per day Alcohol type: beer Adopted: No Caregiver/support person: No Lives independently: Yes Marital status: Current occupational status: disabled History of recent travel: No Vitals/I&O/Wt Last Vital Signs Temp 97.2 F L 11/02/22 05:55 Pulse 64 11/02/22 05:55 Resp 16 11/02/22 05:55 BP 117/66 11/02/22 05:55 Pulse Ox 97 11/02/22 05:55 O2 Del Method 11/02/22 05:55 Physical Exam Const: COMMON NORMALS: no acute distress, average body habitus, patient oriented x3 and healthy appearing HENMT: COMMON NORMALS: atraumatic, hearing grossly normal bilaterally, external ears normal and Normal external nose present Eye: COMMON NORMALS: Equal, round and reactive pupils present and EOMs intact bilaterally Neck/C-Spine: COMMON NORMALS: full ROM, no lymphadenopathy and No carotid bruits OTHER: He does have a rather full doty which I did inform he would need to be partially removed on the left side prior to his surgery. He is agreeable. Chest: COMMONS NORMALS: normal inspection of the chest and normal palpation of entire chest wall Resp: COMMON NORMALS: normal respiratory effort, No use of accessory muscles and clear to auscultation bilaterally Cardio: COMMON NORMALS: regular rate, regular rhythm, S1 normal heart sound present, No murmurs present (Cardio) and No rub (Cardio) GI: COMMON NORMALS: Normal to inspection, nondistended, normoactive bowel sounds present Extremity: COMMON NORMALS: no clubbing, cyanosis or edema Neuro: COMMON NORMALS: patient oriented x3, no focal motor deficits, no sensory deficits noted and gait normal Psych: COMMON NORMALS: mental status grossly normal, Normal thought process present, cooperative and normal affect Data 10/28/22 11:50 10/28/22 11:50 A&P Assessment and plan (1) Carotid stenosis, left: Due to his 70% left ICA stenosis with documentation by increasing velocities on serial duplex studies, we have recommended elective left endarterectomy to reduce his statistical increased risk for spontaneous CVA for this lesion. Rationale was carefully discussed. He states understanding and does wish to proceed. Details and risks of the procedure were carefully and frankly discussed. Risks reviewed include the possibility of , stroke, heart attack, major bleeding, infection, pneumonia, organ failure, failure to benefit, temporary or permanent hoarseness, deviation of the tongue, numbness along the side of the face or neck, prolonged hospital stay, pain after the procedure, need for further procedures, inability to complete the procedure, and possible need for long-term followup. All questions were answered. Appropriate consents have been provided for review and signature. Left side has been appropriately marked. Attestations Medical Necessity Statement*: 70% left ICA stenosis from recent CTA of July of this year. Coding Level of Care Code Acute Maritime Engineer for [place] Diagnoses Carotid stenosis, left I65.22
[2022-11-02] MEDS: vancomycin 1,500 MG/300 ML PIGGYBACK 200 MG IV (07:00)
--- NOTE | 2022-11-02 07:51 | SUR.OPER ---
Called and notified girlfriend of surgical start.
[2022-11-02] MEDS: vancomycin 1,000 MG SDV 1000 MG IRRIGATION (08:00)
[2022-11-02] MEDS: heparin,porcine 1,000 unit/mL INJ 1 mL 1000 UNIT IRRIGATION (08:01)
--- NOTE | 2022-11-02 08:01 | P.ANESUD_ITS ---
Pre-Anesthetic Update Pre-Anesthetic Assessment: Date of Surgery/Procedure: 11/02/22 Preop Rohini gnosis: Left carotid artery stenosis Proposed Procedure: Operation Date: 11/02/22 07:00 Proposed Procedures p Left Carotid Endarterectomy 75833,I65.22(Left) - Justino Balderas MD Any changes to Pre-Anesthetic Assessment?: No Last Intake: Intake Last Liquid Date 11/01/22 Last Liquid Time 21:00 Last Solid Date 11/01/22 Last Solid Time 18:00 Labs Last 48hrs: Blood Bank 10/28/22 11:50 Blood Type A Positive Rho(D) Type Positive Antibody Screen Positive Vitals: Temperature 97.2 F L 11/02/22 05:55 Temperature Source Temporal Artery S can 11/02/22 05:55 Pulse Rate 64 11/02/22 05:55 Respiratory Rate 16 11/02/22 05:55 Blood Pressure 117/66 11/02/22 05:55 Blood Pressure Holly n 83 11/02/22 05:55 Pulse Oximetry 97 11/02/22 05:55 Oxygen Delivery Me thod 11/02/22 05:55 Exam: Pre-Anes Outpt Exam: alert, oriented x 3 and regular rate & rhythm Cardiac Studies: No Data to Display Anesthesia Procedures Arterial Line: Time Out Performed: Yes Consent: requested by attending/covering physician, from patient, risks and benefits reviewed and patient agrees to proceed Size (Gauge): 20 Technique Used: guide wire technique Post-Procedure: dry sterile dressing placed Patient Tolerated Procedure: well Complications: none Site: right and radial
[2022-11-02] MEDS: lidocaine 1% INJ 20 mL XX (08:02)
--- NOTE | 2022-11-02 09:02 | SUR.OPER ---
Called and notified Olaf of surgical progress.
--- NOTE | 2022-11-02 10:01 | P.OP_ITS ---
Operative Report Date of procedure: November 02, 2022 Pre-op diagnosis: Preop Diagnosis Left carotid artery stenosis Post-op diagnosis: same Procedure done: Left carotid endarterectomy with patch angioplasty Implants: Christopher shield patch Specimens removed/disposition: Left carotid plaque Surgeon: Justino Balderas Anesthesia: General Estimated blood loss (mL): 75 Complications: None Condition: stable Disposition: ICU Brief History: He was alertMrAldo Alvarez is a 67-year-old gentleman currently admitted for planned left carotid endarterectomy due to a 70% left ICA stenosis. Endarterectomy was recommended to reduce his statistical increased risk for spontaneous CVA from this lesion. He has had a prior right carotid endarterectomy several years ago. During surveillance we have noted increasing velocities with serial duplex studies this prompted recent CTA in July confirming 70% stenosis on the left side. Details of risk of the procedure well and rationale were carefully a nd frankly discussed. Appropriate consents have been reviewed and signed. Procedure: Mr. Alvarez was placed on the OR table and underwent general endotracheal anesthesia with a neurological monitoring endotracheal tube as well as placement of a right radial arterial line. Bihemispheric monitoring pads were placed as well as grounding and sensing pads for nerve conduction evaluation during neck dissection.The entire upper chest and left neck were sterilely prepped and draped. Incision was made along the anterior border of the sternomastoid muscle and carried down to the platysma with cautery. Dissection from this point forward was carried out utilizing Metzenbaum scissors and limited use of bipolar cautery. The internal jugular vein was dissected free and the facial vein was ligated, oversewn, and divided. Dissection was continued down through the ansa cervicalis with preservation of major branches. Minor branches were divided if required to allow for adequate exposure. Nerve conduction evaluation was performed throughout the dissection for protection of the recurrent nerve. We subsequently reached the common carotid artery. Dissection was then continued proximally to distally across the bifurcation. Vessel loops were placed around the common carotid artery, internal carotid artery, and external carotid artery. Distally, the base of the hypoglossal nerve could be identified and was protected. The internal carotid artery disease went fairly high and extended above the level of the mandibular angle. This did require some traction in this region, but great care was taken to minimize pressure to the hypoglossal nerve, which was protected. Care was taken during this dissection to avoid injury to the vagus nerve. The patient was then heparinized with 10,000 units. The systolic blood pressure was elevated to 160. Following this, in a rapid sequenced fashion, the distal internal carotid artery was clamped followed by clamping of the common carotid artery and external carotid artery. #11 scalpel blade was used to open the common carotid artery proximally. Holder scissors were then utilized to extend this arteriotomy across the distal common carotid artery and ulcerated very stenotic plaque and continue this further at the bifurcation across the calcific plaque in the internal carotid artery until we had reached normal intima. The internal carotid artery clamp was briefly flashed with evidence of brisk back bleeding, therefore we elected not to shunt. It should be noted that bi-hemispheric oximetry was recorded throughout the procedure. Next, a freer elevator was utilized to create a dissection plane the plaque from intima at the proximal portion of the arteriotomy. This was then divided with a #11 scalpel blade. This plaque was then further dissected along the intimal plane proximally to distally across the bifurcation. Utilizing an everting technique, plaque was removed from the external carotid artery with brisk flow. This plaque was then dissected free up the internal carotid artery to a feathered edge. Heparinized saline solution was utilized to remove any loose debris. Next, a Hemashield patch was brought into the field and sewn into position utilizing a running 6-0 Prolene suture, thereby completing our patch angioplasty. At the completion of the patch, the external carotid artery was opened followed by the common carotid artery and finally the internal carotid artery, thereby reestablishing cerebral flow. Areas of extravasation were repaired with 6-0 Prolene suture. After 5 minutes, heparin was reversed with protamine. Hemostasis was confirmed. The wound was irrigated with antibiotic solution. A small, flat, Ramon-Pina drain was placed in the wound and connected to bulb suction. Sponge and needle count was correct. The wound was then closed in 2 layers of 3-0 Vicryl suture. Skin was reapproximated in a subcuticular manner with 4-0 Monocryl suture. A pressure dressing was then applied. The patient was awakened from anesthesia and spontaneous movement of all extremities as well as movement to command was noted. The patient was then transferred to the ICU in stable condition. I did parliamentary counsel with his girlfriend at completion of the procedure. Mr. Chicot will be monitored in the ICU for the next 24 hours.
--- NOTE | 2022-11-02 10:16 | ANE.PACU2 ---
Inpatient post-anesthesia follow up: Airway intact: Yes Vital signs: Temperature 97.2 F Pulse Rate 64 Respiratory Rate 16 Blood Pressure 117/66 Pulse Oximetry 97 Oxygen Delivery Me thod Room Air Oxygen Flow Rate Fraction of Inspir ed Oxygen Hydration adequate: Yes Nausea and vomiting: No Pain level: 1 Mental status: Baseline
[2022-11-02] MEDS: lactated ringers 1,000 ML 75 ML IV (10:40)
[2022-11-02] MEDS: aspirin 81 mg Chew Tablet PO (11:12)
[2022-11-02 11:17] LABS: Glucose Point of Care 147 mg/dL (70-110)
[2022-11-02] MEDS: HYDROcodone-acetaminophen 5-325 mg Tablet 1 TAB PO ×2 (12:34→23:16)
[2022-11-02] MEDS: insulin lispro 100 unit/1 mL SUBCUT ×3 (12:34→21:56)
--- NOTE | 2022-11-02 16:33 | ANE.PACU2 ---
Inpatient post-anesthesia follow up: Airway intact: Yes Vital signs: Temperature 97.2 F Pulse Rate 47 Respiratory Rate 16 Blood Pressure 121/59 Pulse Oximetry 95 Oxygen Delivery Me thod Nasal Cannula Oxygen Flow Rate 3 Fraction of Inspir ed Oxygen Hydration adequate: Yes Nausea and vomiting: No Pain level: 3 Mental status: Baseline
[2022-11-02 17:23] LABS: Glucose Point of Care 238 mg/dL (70-110)
[2022-11-02] MEDS: vancomycin 1,250 MG/250 ML PIGGYBACK 250 MG IV (18:02)
[2022-11-02 19:51] LABS: Glucose Point of Care 234 mg/dL (70-110)
[2022-11-03] VITALS (89 sets, daily range): BP systolic 103–143; BP diastolic 45–74; PULSE 34–71; RESP 10–33; TEMP 36.4; O2SAT 91–99
[2022-11-03] MEDS: quetiapine 100 mg Tablet 200 MG PO
[2022-11-03] MEDS: amitriptyline 25 mg Tablet 50 MG PO
[2022-11-03] MEDS: lactated ringers 1,000 ML 75 ML IV (02:23)
--- NOTE | 2022-11-03 06:09 | P.DS_ITS ---
Discharge Providers Date of Admission: 11/02/22 09:40 Date of Discharge: November 03, 2022 Attending Provider at Admission: Justino Balderas MD Attending Provider at Discharge: Justino Balderas MD Primary Care Provider: Jeremie Lee MD Diagnoses at Discharge Discharge Diagnosis (1) Carotid stenosis, left: Details from hospital stay: Mr. Alvarez is a 67-year-old gentleman whom we have been following for known left carotid stenosis status post right carotid endarterectomy several years ago. He has had increasing velocities on serial duplex studies resulting in a CTA confirming a 70% left ICA stenosis. Carotid endarterectomy was recommended to reduce his statistical increased risk for spontaneous CVA related to this high- grade lesion. He was electively admitted on November 02 and underwent left carotid endarterectomy with patch angioplasty. Postoperatively, he convalesced in the ICU. He remains hemodynamically and neurologically intact. Phonation is normal and there are no swallowing difficulties. He had low QUEENIE drain output overnight. QUEENIE drain and surgical dressings were removed this morning with dressings replaced. Incision is clean, dry, and intact. Face is symmetrical. Tongue is midline with protrusion. Tolerating diet well. He will be discharged home today in stable condition with scheduled follow-up in the [facility]. At the time of discharge, he is in stable condition. Status: Acute Reason for Visit Reason for Visit: I65.22 Physical Exam Const: COMMON NORMALS: patient oriented x3 Neck/C-Spine: OTHER: Surgical incision is clean, dry, and intact. No substantial swelling noted. Resp: COMMON NORMALS: normal respiratory effort and clear to auscultation bilaterally AUSCULTATION: clear to auscultation bilaterally Cardio: COMMON NORMALS: regular rate, regular rhythm and No murmurs present (Cardio) RATE: regular rate RHYTHM: regular rhythm Neuro: COMMON NORMALS: patient oriented x3, moves all extremities, no focal motor deficits and no sensory deficits noted OTHER: Phonation is normal. Urinary Catheter Management: Funez: Cath Placed During This Visit: yes Reason for Continuing Indwelling Catheter: Accurate Measurement of Urinary Output in Critically Ill Patients Urinary Catheter Date of Insertion: 11/02/22 Urinary Catheter Time of Insertion: 07:15 Discharge Data Studies Completed and Pending Pending at discharge Category Date Time Status Antibody Identification Routine Lab 10/28/22 11:50 Results Leukocyte Reduced RBC Routine Lab 10/28/22 11:50 Results Type and Screen - Cardiac Routine Lab 10/28/22 11:50 Results Type and Screen Routine Lab 10/28/22 11:36 Uncollected Pathology: Surgical [PTH] Routine Pth 11/02/22 11:45 Received Laboratory Results WBC 8.6 10^3/uL (4.0-10.0) 10/28/22 11:50 RBC 4.45 10^6/uL (4.1-5.3) 10/28/22 11:50 Hgb 13.0 g/dL (11.7-16.6) 10/28/22 11:50 Hct 40.0 % (42.0-52.0) L 10/28/22 11:50 MCV 89.9 fl (80-94) 10/28/22 11:50 MCH 29.2 pg (28.0-34.0) 10/28/22 11:50 MCHC 32.5 g/dL (30.0-36.0) 10/28/22 11:50 RDW 13.2 % (12.1-15.1) 10/28/22 11:50 Plt Count 216 10^3/cmm (130-400) 10/28/22 11:50 MPV 10.4 fL (7.4-10.4) 10/28/22 11:50 Neut % (Auto) 49.6 % 10/28/22 11:50 Lymph % (Auto) 39.4 % 10/28/22 11:50 [place] % (Auto) 7.2 % 10/28/22 11:50 Eos % (Auto) 2.0 % 10/28/22 11:50 Baso % (Auto) 0.6 % 10/28/22 11:50 Neut # (Auto) 4.27 10^3/uL (1.8-7.7) 10/28/22 11:50 Lymph # (Auto) 3.4 10^3/uL (0.8-4.8) 10/28/22 11:50 [place] # (Auto) 0.6 10^3/uL (0.2-0.9) 10/28/22 11:50 Eos # (Auto) 0.2 10^3/uL (0.0-0.8) 10/28/22 11:50 Baso # (Auto) 0.1 10^3/uL (0.0-0.1) 10/28/22 11:50 Nucleated RBC % (auto) 0 % 10/28/22 11:50 Nucleated RBCs # 0.0 /100WBC 10/28/22 11:50 Sodium 134 mmol/L (136-145) L 10/28/22 11:50 Potassium 4.0 mmol/L (3.5-5.1) 10/28/22 11:50 Chloride 100 mmol/L (98-107) 10/28/22 11:50 Carbon Dioxide 22 mmol/L (22-29) 10/28/22 11:50 Anion Gap 16.0 (5-19) 10/28/22 11:50 BUN 15 mg/dL (8-23) 10/28/22 11:50 Creatinine 0.9 mg/dL (0.7-1.2) 10/28/22 11:50 GFR Calculation 83.9 mL/min (90-130) L 10/28/22 11:50 Glucose 109 mg/dL (65-115) 10/28/22 11:50 POC Glucose 234 mg/dL (70-110) H 11/02/22 19:43 Calculated Osmolality 279 mOsm/kg (285-295) L 10/28/22 11:50 Calcium 10.3 mg/dL (8.5-10.5) 10/28/22 11:50 Urine Color Yellow (Yellow) 10/28/22 11:45 Urine Appearance Clear (CLEAR) 10/28/22 11:45 Urine pH 6.5 (5-7) 10/28/22 11:45 Ur Specific [place] 1.010 (1.005-1.030) 10/28/22 11:45 Urine Protein Neg (Negative) 10/28/22 11:45 Urine Glucose (UA) Norm (Normal) 10/28/22 11:45 Urine Ketones Negative (Negative) 10/28/22 11:45 Urine Blood Trace (Negative) H 10/28/22 11:45 Urine Nitrate Negative (Negative) 10/28/22 11:45 Urine Bilirubin Neg (Negative) 10/28/22 11:45 Urine Urobilinogen Norm mg/dL (Negative) 10/28/22 11:45 Ur Leukocyte Esterase 2+ (Negative) H 10/28/22 11:45 Urine RBC None /hpf (0-2) 10/28/22 11:45 Urine WBC Too numerous to cnt /hpf (0-5) H 10/28/22 11:45 Ur Squamous Epith Cells 0-4 /hpf (0-5) H 10/28/22 11:45 Amorphous Sediment Not Reportable 10/28/22 11:45 Urine Bacteria Trace /hpf (NONE) 10/28/22 11:45 Blood Type A Positive 10/28/22 11:50 Rho(D) Type Positive 10/28/22 11:50 Antibody Screen Positive 10/28/22 11:50 Antibody Identification No Clinically Significant ABID Cold Antibody Non- Specific Cold Antibody 10/28/22 11:50 Antibody Identification No Clinically Significant ABID Cold Antibody Non- Specific Cold Antibody 10/28/22 11:50 Antibody Identification No Clinically Significant ABID Cold Antibody Non- Specific Cold Antibody 10/28/22 11:50 Crossmatch See Detail 10/28/22 11:50 Procedures Performed Left carotid endarterectomy with patch angioplasty on November 02, 2022 Vitals Last Vital Signs Temp 98.6 F 11/02/22 20:00 Pulse 49 L 11/03/22 05:45 Resp 13 11/03/22 05:45 BP 132/65 11/03/22 05:45 Pulse Ox 94 11/03/22 05:45 O2 Del Method 11/02/22 19:42 O2 Flow Rate 3 11/02/22 10:52 Discharge Plan Discharge Patient Disposition: Home Condition: Stable Prescriptions: New hydrocodone-acetaminophen 5-325 mg Tablet 1 tab PO Q6H PRN (Reason: Moderate Pain) Qty: 15 0RF sulfamethoxazole-trimethoprim [Bactrim DS] 800-160 mg tablet 1 tab PO BID Qty: 6 0RF Continued magnesium 250 mg tablet 250 mg PO DAILY ascorbic acid (vitamin C) 1,000 mg tablet 500 mg PO DAILY gemfibrozil 600 mg tablet 600 mg PO BID aspirin [Aspir-81] 81 mg tablet,delayed release (DR/EC) 81 mg PO DAILY Hold Instructions: Resume on 07/25/21. Spiriva with HandiHaler 18 mcg capsule, w/inhalation device 1 cap INHALATION DAILY cetirizine 10 mg tablet 5 mg PO DAILY PRN (Reason: Allergic Symptoms) tamsulosin [Flomax] 0.4 mg capsule 0.4 mg PO DAILY Intelence 200 mg tablet 200 mg PO BID mirtazapine 30 mg tablet 30 mg PO DAILY clonazepam 0.5 mg tablet 0.5 mg PO BID albuterol sulfate [ProAir HFA] 90 mcg/actuation HFA aerosol inhaler 2 puff INHALATION Q6H PRN (Reason: Allergy Symptoms) polysaccharide iron complex [Ferrex 150] 150 mg iron capsule 150 mg PO DAILY omeprazole 20 mg capsule,delayed release(DR/EC) 20 mg PO BID Selzentry 300 mg tablet 300 mg PO BID quetiapine [Seroquel] 100 mg tablet 200 mg PO DAILY amitriptyline 25 mg tablet 50 mg PO .HS Isentress 400 mg tablet 600 mg PO BID Stiolto Respimat 2.5-2.5 mcg/actuation mist 2 puff INHALATION DAILY calcium phosphate-vitamin D3 600-125 mg-unit tablet 600 tab PO DAILY B12 Active 1,000 mcg tablet,chewable 1,000 mcg PO DAILY metformin 500 mg tablet 500 mg PO DAILY ketoconazole 2 % cream 1 applic topical BID Qty: 30 2RF Rx Instructions: To pink scaly areas on face BID x 3 weeks then daily as needed doxazosin 2 mg tablet 2 mg PO DAILY Qty: 90 3RF digoxin 125 mcg (0.125 mg) tablet 125 mcg PO DAILY Qty: 90 3RF metoprolol tartrate 100 mg tablet 100 mg PO BID 90 Days Qty: 180 3RF atorvastatin 40 mg tablet 40 mg PO DAILY Qty: 90 3RF Discharge Orders: Discharge Order (Routine); Ordered 11/03/22 Ordered By: Justino Balderas Referrals: Justino Balderas MD [Physician] - 1 month Discharge Diet: Usual diet Discharge Activity: Limit activity as instructed Patient Instructions: Opioid Safety Activity Restrictions/Additional Instructions: May remove bandage in 2 days May begin daily showers in 3 days Dry incision carefully after showers. May re-cover if desired to prevent irritation from clothing. No swimming or tub baths x 2 weeks No ointments on incision Report drainage, redness, heat, increased pain, or swelling to clinic No heavy lifting or pulling x2 weeks Discharge Attestations Time Spent in Discharge Care*: less than 30 min Specific Discharge Activities: educating patient, discussing with case specialist/social workers/dc planners, documenting/other paperwork and evaluating patient/reviewing data Status at Discharge: Cognitive status at discharge: cognitively intact , Behavioral status at discharge: cooperative , Functional status at discharge: independent ambulation , Overall status at discharge: patient is back to baseline Quality Metrics Clinical Quality Measures [ No reported AMI, CVA or VTE this stay] Coding Level of Care Code Acute Chg FW DC note Diagnoses Carotid stenosis, left I65.22
[2022-11-03] MEDS: vancomycin 1,250 MG/250 ML PIGGYBACK 250 MG IV (06:40)
--- NOTE | 2022-11-03 06:55 | PC.NURSE ---
Bedside report completed with LUCILA Tripathi
[2022-11-03 07:47] LABS: Glucose Point of Care 108 mg/dL (70-110)
[2022-11-03] MEDS: pantoprazole DR 40 mg Tablet PO (09:44)
[2022-11-03] MEDS: CLONazepam 0.5 mg Tablet PO (09:44)
[2022-11-03] MEDS: digoxin 125 mcg Tablet PO (09:44)
[2022-11-03] MEDS: doxazosin 1 mg Tablet 2 MG PO (09:44)
[2022-11-03] MEDS: tamsulosin 0.4 mg Capsule PO (09:45)
[2022-11-03] MEDS: aspirin 81 mg EC Tablet PO (09:45)
--- NOTE | 2022-11-03 11:30 | PC.NURSE ---
Pt discharged home. Discharge instructions including new medications, follow up appts, s/s of stroke and incision care provided and discussed.
--- NOTE | 2022-11-03 11:44 | PC.CHAP ---
Pastoral Care Encounter/Spiritual Assessment Type of Contact [] Declined linesperson visit [] Patient/Family/Request visit [] Outpatient visit [] Follow-up visit [] Physician referral [] Code/Alert [] Routine visit [] Staff referral [] Actively dying [] Patient sleeping [] Family support [] [] Out of room [] Palliative care [] [] Receiving care in room [] Pre-surgical visit [] Trauma [] Long length of stay [] ICU visit [x] Other: moved Relational/Emotional Strength [] Patient feels connected with others/family/visitors/staff [] Distress [] Loneliness/isolation [] Abandonment Spirituality of Patient [] Person of Ramona [] Attends Rastafarian of their Ramona [] Believes in Prayer [] Reads Bible or Catholic materials [] There are Spiritual issues to be addressed Oil Agent Interventions [x] Prayer [] Active listening [] Non-anxious presence [] Spiritual/emotional support [] Crisis/trauma care [] Spiritual counseling [] Bereavement support [] Provided bereavement packet [] Provided Bible/devotional materials [] Provided toy/stuffed animal, coloring book to patient or family member [] Provided Communion [] Anointing/Howes [] Salvation [x] Completed spiritual assessment [] Other: Impact on Illness or Injury [] Angry [] Fearful [] Anxious [] Often cries [] Exhaustion [] Unable to work [] Unable to attend anabaptism [] Unable to walk/stand [] Unable to read [] Unable to drive [] Unable to eat/drink [] Unable to sleep [] Unable to be with family [] Patient intubated [] Other: Summary Time spent with patient
== END 2022-11-03 11:30 | disposition home or self-care (01) | DRG 39 ==
LOC: ICU 10:06
PROVIDERS: Admitting Provider Thoracic Surgery (Cardiothoracic Vascular Surgery); PCP Family Medicine; Visit Provider Thoracic Surgery (Cardiothoracic Vascular Surgery)
PROC: 03CL0ZZ Extirpation of Matter from Left Internal Carotid Artery, Open Approach (ICD-10-PCS; CPT 35301; principal; 2022-11-02 07:00)
DX: I65.22 Occlusion and stenosis of left carotid artery (principal); Z79.82 Long term (current) use of aspirin; Z79.51 Long term (current) use of inhaled steroids; Z79.84 Long term (current) use of oral hypoglycemic drugs; F10.10 Alcohol abuse, uncomplicated; F12.10 Cannabis abuse, uncomplicated; I25.10 Atherosclerotic heart disease of native coronary artery without angina pectoris; Z85.828 Personal history of other malignant neoplasm of skin; N40.1 Benign prostatic hyperplasia with lower urinary tract symptoms; R39.14 Feeling of incomplete bladder emptying; R39.15 Urgency of urination; J44.9 Chronic obstructive pulmonary disease, unspecified; E11.9 Type 2 diabetes mellitus without complications; Z87.891 Personal history of nicotine dependence; E78.5 Hyperlipidemia, unspecified; K21.9 Gastro-esophageal reflux disease without esophagitis; Z21 Asymptomatic human immunodeficiency virus [HIV] infection status; Z79.899 Other long term (current) drug therapy
CPT/HCPCS: 36415; 36416; 51702; 80048; 80053; 80503; 81001; 82962; 85025; 86361; 86850; 86870; 86900; 86920; 87086; 88304; 93005; 96372; J0131; J1100; J1170; J1644; J1815; J2370; J2405; J2704; J2720; J3010; J3370; J3490; J7030; J7120

== ENCOUNTER → 2022-11-12 10:46 | Outpatient (BNVA) | payer MEDICARE, MEDICAID, SELFPAY | PROVIDERS: PCP Family Medicine; Visit Provider Internal Medicine | DX: I48.91 Unspecified atrial fibrillation (principal); I65.23 Occlusion and stenosis of bilateral carotid arteries; E78.5 Hyperlipidemia, unspecified; I10 Essential (primary) hypertension; Z87.891 Personal history of nicotine dependence | CPT/HCPCS: 99214 ==

== ENCOUNTER → 2023-01-25 15:03 | Outpatient (BNVA) | payer MEDICARE, MEDICAID, SELFPAY | PROVIDERS: PCP Family Medicine; Visit Provider Thoracic Surgery (Cardiothoracic Vascular Surgery) | DX: I65.23 Occlusion and stenosis of bilateral carotid arteries (principal); Z98.890 Other specified postprocedural states; I10 Essential (primary) hypertension; Z87.891 Personal history of nicotine dependence | CPT/HCPCS: 99024 ==

== ENCOUNTER 2023-02-01 13:56 | Outpatient (CLI) | payer MEDICARE, MEDICAID, SELFPAY ==
--- NOTE | 2023-02-01 14:30 | USCV_ITS ---
Shimon Alvarez Age: 68 Gender: M : 1955 Exam Date: 02/01/2023 14:26 Ordering Phys: Justino Balderas MD (Andy) ([email or web address] [place] Technologist: LEDY [place] [facility] [place]: Carotid stenosis Risk Factors: Previous Vascular Surgery: Right Brachial BP: / Left Brachial BP: / Right Left Velocity (cm/s) Spectral Plaque Velocity (cm/s) Spectral Plaque Syst/Diast Broadening Syst/Diast Broadening 101.80/16.30 Prox CCA 97.10 / 16.00 78.50/ 14.80 Mid CCA 152.50/ 27.60 83.90/ 13.20 Distal CCA 119.60/ 19.70 54.50/ 16.50 Prox ICA 83.10 / 21.00 87.10/ 16.10 Mid ICA 126.80/ 27.60 88.80/ 23.70 Distal ICA 121.30/ 27.60 147.50 ECA 115.80 1.11 ICA/CCA 0.83 Antegrade Vertebral Antegrade 17.50/ 5.10 cm/s 18.80/ 3.00 cm/s Tri Subclavian Tri 147.2 87.00 0 CONCLUSIONS Right ICA stenosis <50%. Mild atheromatous plaque right carotid bulb/ICA. Left ICA stenosis <50%. Mild atheromatous plaque left carotid bulb/ICA. Normal antegrade Doppler flow noted in the right vertebral artery. Normal antegrade Doppler flow noted in the left vertebral artery. Cristian Tidwell MD (Electronically Signed) Final Date: 01 February 2023 15:12 S
== END 2023-02-01 13:57 | disposition home or self-care (01) ==
PROVIDERS: PCP Family Medicine; Visit Provider Thoracic Surgery (Cardiothoracic Vascular Surgery)
DX: I65.23 Occlusion and stenosis of bilateral carotid arteries
CPT/HCPCS: 93880

== ENCOUNTER → 2023-04-21 14:01 | Outpatient (BNVA) | payer MEDICARE, MEDICAID, SELFPAY | PROVIDERS: PCP Family Medicine; Visit Provider Thoracic Surgery (Cardiothoracic Vascular Surgery) | DX: Z98.890 Other specified postprocedural states (principal) | CPT/HCPCS: 99213 ==

== ENCOUNTER → 2023-05-11 09:41 | Outpatient (BNVA) | payer MEDICARE, MEDICAID, SELFPAY | PROVIDERS: PCP Family Medicine; Visit Provider Nurse Practitioner Family | DX: R59.0 Localized enlarged lymph nodes (principal); L81.4 Other melanin hyperpigmentation; L85.3 Xerosis cutis; Z71.89 Other specified counseling; L57.8 Other skin changes due to chronic exposure to nonionizing radiation; D22.5 Melanocytic nevi of trunk | CPT/HCPCS: 99214 ==

== ENCOUNTER 2023-05-16 09:17 | Outpatient (CLI) | payer MEDICARE, MEDICAID, SELFPAY ==
--- NOTE | 2023-05-16 09:27 | CT_ITS ---
WS: [id number] CT chest w con* [id number] HISTORY: LOCALIZED SWELLING, MASS AND LUMP TRUCK TECHNIQUE: Axial imaging performed through the thorax. Coronal and sagittal reformats are submitted. All CT scans at [facility] use at least one of these dose optimization techniques: automated exposure control; mA and/or kV adjustment per patient size (includes targeted exams where dose is mat ched to clinical indication); or iterative reconstruction. CONTRAST: Omnipaque 350; 100 mL IV. DLP: 259.10 mGy.cm COMPARISON: Lung screening 02/13/2021 Lungs and central airway: Hyperexpanded lungs. There is extensive fingerlike extensions filling the L EFT lower lobe bronchial tree. Bronchiectasis was noted on prior studies. There is also mild bronchie ctasis in the RIGHT lower lobe with tree-in-bud airspace disease. Additional tree-in-bud airspace dis ease surrounding the mucous filled bronchial tree on the LEFT. Scattered groundglass attenuation RIGH T upper lobe. Pleura: Normal. No pleural effusion. Heart and pericardium: Mild cardiomegaly. Soft tissue filling defect in the RIGHT atrium extending to wards the SVC. This may be admixing of blood but appears masslike on today's exam. Mediastinum and donato: Mildly prominent mediastinal and hilar lymph nodes. Largest lymph node is RIGHT hilar at 17 mm. There is additional bronchial wall thickening extending into the lower lung salmon. Vessels: Mild atherosclerosis aorta. Normal pulmonary artery. Chest wall and lower neck: There are numerous pulmonary masses involving the chest wall both anterior and posterior. RIGHT pectoral mass measures 20 x 16 mm. Additional RIGHT lateral chest wall mass skyler sures 27 x 30 mm. Additional smaller masses along the RIGHT chest wall. Soft tissue mass lateral to t he LEFT scapula measures 28 x 25 mm. Smaller masses along the posterior thorax bilaterally. The large st in the LEFT lower thorax measuring 32 x 16 mm. Upper abdomen: Small hiatal hernia. Bilateral adrenal masses. These are enhancing masses with soft ti ssue components. The largest involving the RIGHT adrenal measures 5.3 x 3.2 cm. LEFT adrenal mass skyler sures 2.9 x 3.4 cm. Cyst upper pole LEFT kidney, subcentimeter. RIGHT retrocrural lymph node at 13 mm. RIGHT celiac axis lymph node 23 x 19 mm. There is an additiona l metastatic deposit in the posterior RIGHT upper abdomen. Osseous structures: Mild deformity of the mid sternal body may be from a prior fracture. No destructi ve bone lesions are identified. CT/CT chest w con* [id number] IMPRESSION: 1. Numerous subcutaneous soft tissue masses throughout the thorax. These range in size from a few millimeters with the largest measuring 27 x 30 mm along the RIGHT lateral chest wall. These were not present on 02/13/2021. 2. Bilateral adrenal masses are new. Likely metastatic disease to the adrenal glands. 3. Additional mesenteric deposits, probably lymph nodes in the RIGHT retrocrur al and celiac region. 4. Groundglass attenuation scattered throughout the RIGHT upper lobe. 5. Tree-in-bud airspace disease in the lower lung salmon bilaterally with exte nsive mucus secretions distending the bronchi in the LEFT lower lobe. 6. Indeterminate but mildly prominent hilar lymph nodes. 7. Mild soft tissue filling a portion of the RIGHT atrium extending towards th e SVC. This may be mixing of blood but appears very masslike. Consider follow-u p transesophageal echo. 8. PET/CT imaging may provide additional information. Differential includes ly mphoma and metastatic melanoma. Ultrasound-guided biopsy of the superficial sof t tissue nodules could be easily obtained.
[2023-05-16 10:11] LABS: Blood Urea Nitrogen 17 mg/dL (8-23); Glomerular Filtration Rate 74.1 mL/min (90-130)
[2023-05-16] MEDS: iohexol 350 mg/mL 500 mL Btl (per mL) IV (10:16)
== END 2023-05-16 09:18 | disposition home or self-care (01) ==
PROVIDERS: PCP Family Medicine; Visit Provider Nurse Practitioner Family
DX: R22.2 Localized swelling, mass and lump, trunk (principal); E27.9 Disorder of adrenal gland, unspecified
CPT/HCPCS: 71260; 82565; 84520; Q9967

== ENCOUNTER → 2023-05-17 10:52 | Outpatient (BNVA) | payer MEDICARE, MEDICAID, SELFPAY | PROVIDERS: PCP Family Medicine; Visit Provider Dermatology | DX: C7A.098 Malignant carcinoid tumors of other sites (principal); R55 Syncope and collapse; L82.1 Other seborrheic keratosis; D22.5 Melanocytic nevi of trunk; L81.4 Other melanin hyperpigmentation; R59.0 Localized enlarged lymph nodes; Z85.828 Personal history of other malignant neoplasm of skin; Z87.891 Personal history of nicotine dependence | CPT/HCPCS: 11106; 99214 ==

== ENCOUNTER 2023-05-27 16:04 | Outpatient (CLI) | payer MEDICARE, MEDICAID, SELFPAY ==
--- NOTE | 2023-05-27 | CT_ITS ---
WS: [id number] CT HEAD TECHNIQUE: Noncontrast and contrast-enhanced CT of the head. CLINICAL INFORMATION: LOCALIZED SWELLING MASS LUMP COMPARISON: None. DLP: 2274.[address] scans at [facility] use at least one of these dose optimization techniques: automated e xposure control; mA and/or kV adjustment per patient size (includes targeted exams where dose is matc hed to clinical indication); or iterative reconstruction. FINDINGS: Multiple peripheral enhancing intraparenchymal lesions suspicious for metastatic disease versus absce ss/infection. Largest lesions with peripheral nodularity measure 2.7 x 2.4 cm LEFT parietal lobe and 2.1 x 2.0 cm in the RIGHT frontotemporal junction. Additional scattered smaller lesions bilaterally. Small enhancing lesion in the RIGHT inferior basal ganglia. Mild surrounding edema about the larger l esions. No significant mass effect or hydrocephalus. No midline shift. Small amount of leptomeningeal enhancement involving the RIGHT temporal lobe. Findings can be further evaluated with MRI without an d with gadolinium enhancement if indicated. Paranasal sinusitis with fluid in the LEFT frontal sinus, frontoethmoidal recess, and RIGHT maxillary sinus with air-fluid levels. Mastoid air cells are well aerated. Sclerotic lesion in the LEFT fronta l calvarium is unchanged since 2018. No evidence of cortical destruction. CT/CT head wo/w con [id number] IMPRESSION: 1. Multiple peripheral enhancing intraparenchymal lesions with central low att enuation suspicious for metastatic disease. However, if immunocompromised addit ional considerations include multifocal abscess, fungal infection specifically aspergillosis, toxoplasmosis, and primary PROPERTY CARETAKER lymphoma. 2. Largest peripheral enhancing lesions with peripheral nodularity involving t he LEFT parietal lobe at the vertex and RIGHT frontotemporal junction. 3. Small amount of leptomeningeal enhancement involving the RIGHT temporal lob e. 4. Mild edema associated with the larger lesions. No significant mass effect o r midline shift. No hydrocephalus. 5. Paranasal sinusitis with fluid in the LEFT frontal sinus, frontal recess, a nd RIGHT maxillary sinus with air-fluid levels. Notified Malgorzata Blake DO at 05/27/2023 5:19 PM.
--- NOTE | 2023-05-27 | CT_ITS ---
WS: [id number] CT NECK TECHNIQUE: Contrast-enhanced CT of the neck with coronal and sagittal reformatted images. CLINICAL INFORMATION: LOCALIZED SWELLING, MASS LUMP COMPARISON: None. DLP: 2274.[address] scans at [facility] use at least one of these dose optimization techniques: automated e xposure control; mA and/or kV adjustment per patient size (includes targeted exams where dose is matc hed to clinical indication); or iterative reconstruction. FINDINGS: Air-fluid level RIGHT maxillary sinus. Partially visualized mastoid air cells well aerated. Normal po sterior nasopharynx. Normal parapharyngeal fat. Parotid glands are normal. Normal thyroid enhancement . Fibrosis lung apices. Peripherally enhancing bilateral cervical lymphadenopathy LEFT greater than RIGHT. LEFT submandibular lymph node measures 10 mm. Additional enhancing posterior triangle and supraclavicular lymph nodes. LEFT supraclavicular lymph n ode measuring 13 mm. Smaller lymph nodes extend into the superior mediastinum. Differential considera tions include metastatic disease, lymphoma, fungal and opportunities infections if immunocompromised. Mild cervical curve. Moderate spondylitic changes cervical spine. Disc space narrowing worse at C3-C4 . CT/CT neck w con* [id number] IMPRESSION: 1. Bilateral abnormal enhancing cervical chain lymph nodes extending to the willis praclavicular regions bilaterally. Largest lymph nodes measure 10-13 mm. Differ ential considerations include metastatic disease, lymphoma, fungal infection, a nd opportunistic infections if immunocompromised. 2. RIGHT maxillary sinusitis. 3. No evidence of supraglottic or glottic mass. Airway is patent.
[2023-05-27] MEDS: iohexol 350 mg/mL 500 mL Btl (per mL) IV (16:22)
== END 2023-05-27 16:05 | disposition home or self-care (01) ==
PROVIDERS: PCP Family Medicine; Visit Provider Dermatology
DX: G93.89 Other specified disorders of brain (principal); G93.6 Cerebral edema; J32.9 Chronic sinusitis, unspecified
CPT/HCPCS: 70470; 70491; Q9967

== ENCOUNTER → 2023-05-30 10:48 | Outpatient (BNVA) | payer MEDICARE, MEDICAID, SELFPAY | PROVIDERS: PCP Family Medicine; Visit Provider Dermatology | DX: C4A.59 Merkel cell carcinoma of other part of trunk (principal); C4A.4 Merkel cell carcinoma of scalp and neck; C4A.39 Merkel cell carcinoma of other parts of face; C79.31 Secondary malignant neoplasm of brain; L57.0 Actinic keratosis; Z48.02 Encounter for removal of sutures; Z85.828 Personal history of other malignant neoplasm of skin; Z87.891 Personal history of nicotine dependence | CPT/HCPCS: 99213 ==

== ENCOUNTER 2023-06-07 12:50 | Oncology outpatient (recurring) (ONCR) | payer MEDICARE, MEDICAID, SELFPAY ==
--- NOTE | 2023-05-30 10:10 | N.ONRAD NP_ITS ---
Radiation Oncology Consultation Patient Name: Shimon Alvarez Date of : 1955 Date of Service: 05/30/2023 Attending Physician: Edmundo Rodriguez M.D. 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 He was evaluated at the [facility] for enlarging skin lesions located on the abdomen and back. Multiple subcutaneous nodules were noted with right axillary lymphadenopathy. A thoracic CT scan ordered on May 16, 2023 described numerous chest wall masses, right hilar and mediastinal lymphadenopathy, bilateral adrenal masses, a right retrocrural lymph node, a right celiac lymph node, and metastatic deposits in the posterior aspect of the right upper abdomen. 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 A CT of the head (independently reviewed in [facility]) obtained on May 27, 2023 identified multiple peripheral enhancing masses. The largest metastatic deposit measured 0.7 cm x 2.4 cm located in the left parietal lobe. Also reported was leptomeningeal enhancement involving the right temporal lobe. The patient was referred for palliative cranial radiotherapy. I reviewed the National Comprehensive Cancer Network Guidelines for extensive brain metastases and the role of hypothalamic- avoidance whole brain radiotherapy and memantine, cranial radiotherapy with or without memantine, and stereotactic radiosurgery for the management of cranial metastases. In consideration of the patient's metastatic disease burden, I anticipate a short-course of radiotherapy. The potential toxicities of cranial radiotherapy were reviewed. The patient has verbalized understanding would like to proceed as recommended. I will prescribed a glucocorticoid for cerebral edema. He currently has been prescribed a PPI for GERD. The patient???s medical plan was discussed with Malgorzata Blake D.O. Signed by: Dr. Edmundo Rodriguez 05/30/2023 11:22:43 AM
[2023-06-02 10:15] VITALS: BP 146/77; PULSE 82; RESP 18; TEMP 36.6; O2SAT 95
[2023-06-02 10:24] LABS: Basophils % 0.3 %; Eosinophils # 0.1 10^3/uL (0.0-0.8); Hematocrit 33.4 % (42.0-52.0); Hemoglobin 11.4 g/dL (11.7-16.6); Lymphocytes # 2.3 10^3/uL (0.8-4.8); Lymphocytes % 33.5 %; Mean Corpuscular HGB Conc 34.1 g/dL (30.0-36.0); Mean Corpuscular Hemoglobin 28.9 pg (28.0-34.0); Mean Corpuscular Volume 84.8 fl (80-94); Mean Platelet Volume 9.4 fL (7.4-10.4); Monocytes # 0.7 10^3/uL (0.2-0.9); Neutrophils # 3.71 10^3/uL (1.8-7.7); Neutrophils % 53.8 %; Nucleated Red Blood Cells % 0 %; Platelet Count 166 10^3/cmm (130-400); Red Blood Count 3.94 10^6/uL (4.1-5.3); Red Cell Distribution Width 12.4 % (12.1-15.1); White Blood Count 6.9 10^3/uL (4.0-10.0)
[2023-06-02 10:51] LABS: Alanine Aminotransferase 12 U/L (0-41); Albumin Level 4.3 g/dL (3.5-5.2); Alkaline Phosphatase 99 U/L (40-130); Anion Gap 16.2 (5-19); Aspartate Amino Transferase 21 U/L (0-40); Blood Urea Nitrogen 15 mg/dL (8-23); Carbon Dioxide 22 mmol/L (22-29); Chloride 89 mmol/L (98-107); Globulin 3.3 g/dL (1.3-4.6); Glomerular Filtration Rate 66.4 mL/min (90-130); Glucose 111 mg/dL (65-115); Osmolality Calculated 258 mOsm/kg (285-295); Potassium 4.2 mmol/L (3.5-5.1); Sodium 123 mmol/L (136-145); Total Bilirubin 0.5 mg/dL (0.15-1.2); Total Protein 7.6 g/dL (6.6-8.7)
--- NOTE | 2023-06-06 13:20 | ONCRAD TMN_ITS ---
Radiation Oncology Treatment Management Note Patient Name: Shimon Alvarez Date of : 1955 Date of Service: 06/06/2023 Attending Physician: Edmundo Rodriguez M.D. Shimon Alvarez is a 68 year old white male diagnosed with metastatic Alysa cell carcinoma. He was evaluated at the [facility] D[facility]at[facility] for enlarging skin lesions located on the abdomen and back. Multiple subcutaneous nodules were noted with right axillary lymphadenopathy. A thoracic CT scan ordered on May 16, 2023 described numerous chest wall masses, right hilar and mediastinal lymphadenopathy, bilateral adrenal masses, a right retrocrural lymph node, a right celiac lymph node, and metastatic deposits in the posterior aspect of the right upper abdomen. An incisional biopsy from a left back nodule diagnosed a cutaneous neuroendocrine carcinoma consistent with [place] cell carcinoma. A CT of the head obtained on May 27, 2023 identified multiple peripheral enhancing masses. The largest metastatic deposit measured 0.7 cm x 2.4 cm located in the left parietal lobe. Also reported was leptomeningeal enhancement involving the right temporal lobe. The patient has received 16 Gy of a prescribed 20 Petty with a 3-dimensional conformal radiotherapy plan utilizing a half-beam block treatment technique with opposed lateral portal salmon. Upon review of systems, he denied neurological symptoms but did report skeletal pain. On physical examination, the patient weighed 160 lbs. His temperature was 97.4 ???F and the blood pressure was 143/78 mmHg. His pulse was 92 bpm and the respiratory rate was 18. Cranial nerves were intact. There was no thrush in the oropharynx. Continue cranial radiotherapy as planned. I will prescribe Lortab for his pain. Signed by: Dr. Edmundo Rodriguez 06/06/2023 1:19:23 PM
--- NOTE | 2023-06-07 13:06 | N.ONRD TS_ITS ---
Radiation OncologyTreatment Summary Patient Name: Shimon Alvarez Date of : 1955 Date of Service: 06/07/2023 Attending Physician: Edmundo Rodriguez M.D. Shimon Alvarez has completed cranial radiotherapy for the management of metastatic [place] cell carcinoma. He was evaluated at the [facility] D[facility]at[facility] for enlarging skin lesions located on the abdomen and back. Multiple subcutaneous nodules were noted with right axillary lymphadenopathy. A thoracic CT scan ordered on May 16, 2023 described numerous chest wall masses, right hilar and mediastinal lymphadenopathy, bilateral adrenal masses, a right retrocrural lymph node, a right celiac lymph node, and metastatic deposits in the posterior aspect of the right upper abdomen. 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 A CT of the head obtained on May 27, 2023 identified multiple peripheral enhancing masses. The largest metastatic deposit measured 0.7 cm x 2.4 cm located in the left parietal lobe. Also reported was leptomeningeal enhancement involving the right temporal lobe. Daily radiotherapy was administered between the dates June 01, 2023 through June 07, 2023. A prescribed dose of 20 Gy was delivered in 5 fractions encompassing 7 elapsed days. The cranial fossa was treated utilizing a 3-dimensional conformal radiotherapy plan with an opposed lateral portal field design and a half-beam treatment technique. The left lateral port employed a gantry angle of 90??? and a collimator angle of 335???. The field size measured 12 cm x 12 cm within X-direction and 0 cm x 16 cm within the Y-direction. The measured SSD was 93.1 cm with the field delivering 213 monitor units. The right lateral field utilized a 270??? gantry angle with a collimator angle of 25???. The field size measured 12 cm x 12 cm within the X-direction and 0 cm x 18 cm within the Y-direction. The SSD measured 93.2 cm with the port administering 216 monitor units. All treatments were performed with the Concept3D linear accelerator and an isocentric technique. The dose was calculated by Anisotropic Analytic Algorithm. Photon energies of 15 MV were prescribed with the plan normalized to deliver 100% of the prescription dose to 100% of the planning target volume. Signed by: Dr. Edmundo Rodriguez 06/07/2023 1:05:09 PM
== END 2023-06-27 23:59 | disposition home or self-care (01) ==
PROVIDERS: Internal Medicine Medical Oncology; Absent Provider Internal Medicine Medical Oncology; PCP Family Medicine; Visit Provider Radiology Radiation Oncology
DX: Z51.0 Encounter for antineoplastic radiation therapy (principal); C4A.59 Merkel cell carcinoma of other part of trunk; C79.31 Secondary malignant neoplasm of brain; C78.01 Secondary malignant neoplasm of right lung; C78.02 Secondary malignant neoplasm of left lung; C77.8 Secondary and unspecified malignant neoplasm of lymph nodes of multiple regions; C79.89 Secondary malignant neoplasm of other specified sites; Z79.899 Other long term (current) drug therapy
CPT/HCPCS: 36415; 77280; 77290; 77295; 77300; 77334; 77336; 77412; 80053; 85025; 99024; 99205; 99213

== ENCOUNTER 2023-06-18 06:39 | Outpatient (CLI) | payer MEDICARE, MEDICAID, SELFPAY ==
--- NOTE | 2023-06-18 09:21 | PETR_ITS ---
PROCEDURE INFORMATION: Exam: PET/CT Skull Base to Mid-thigh Exam date and time: 06/18/2023 1:17 PM Age: 68 years old Clinical indication: Condition or disease; Primary cancer: Staging irving cell; Initial oncological staging assessment LABS AND CLINICAL REPORTS: Glucose: 197 mg/dl Treatment strategy for malignancy (PET staging): Initial Staging (PI) TECHNIQUE: Imaging protocol: Following at least four-hour fasting and following the injection of radiopharmaceutical, low dose CT images were obtained. Then, PET images were obtained. Attenuation corrected images were constructed using the CT scan. Fused images of PET and CT were reviewed. The standardized uptake values (SUV) reported below are maximum values within a region of interest, expressed in gm/ml. Exam includes orbital meatal line to mid-thigh. Radiopharmaceutical: 11.98 mCi F-18 FDG (Fluorodeoxyglucose), IV. Time of imaging post radiopharmaceutical administration: 1 hour Injection site: Not specified COMPARISON: CT for radiation therapy planning 05/30/2023, CT head and CT neck 05/27/2023, CT chest w con 05/16/2023 10:12 AM FINDINGS: Brain: No abnormal elevated uptake in the brain is identified. There is a rounded focus of similar high left parietal lobe photopenia measuring approximately 3 cm in diameter in the axial plane corresponding to hypodensity on the CT images. Paranasal sinuses: There is non radiotracer avid mild mucosal thickening in the right maxillary sinus with a small fluid level consistent with benign sinus disease. Pharynx: No abnormal uptake. Larynx: No abnormal uptake. Lungs, pleura and trachea: Ill-defined new regions of patchy ground-glass density in the right hemithorax are noted, some of which demonstrate elevated uptake, for example in the right upper lobe on series 3, image 59, SUV max 4.2, posterior right upper lobe, SUV max 3.7 an infrahilar right lower lobe, SUV max 5.1. Prominent peripheral left lower lobe bronchial structures which are opacified, likely related mucous plugging similar to the prior CT are not radiotracer avid. Heart: Normal physiologic uptake. Mediastinal space: No abnormal uptake. Liver: No abnormal uptake. Gallbladder and bile ducts: No abnormal uptake. Pancreas: No abnormal uptake. Spleen: No abnormal uptake. Adrenal glands: Masslike enlargement of the right adrenal gland is noted measuring 5.5 x 3.8 cm with elevated uptake, SUV max 5.2. Abnormal enlargement of the left adrenal gland measuring 3.9 x 3.0 cm with elevated uptake, SUV max 4.0. Kidneys and ureters: Normal physiologic uptake. A non radiotracer avid posteriorly projecting ovoid fluid density structure likely representing a simple cyst in the right kidney measures 1.7 x 1.2 cm. Unremarkable left kidney. Stomach and bowel: Uptake in the distal rectum extending to the level of the anus is elevated, SUV max 7.7. The wall of the rectum and anus is not well assessed secondary to incomplete distension. Intraperitoneal and retroperitoneal spaces: There is a trace amount of free fluid in the retroperitoneal periaortic regions. Urinary bladder: Marked distention of the urinary bladder without wall thickening. Vasculature: No abnormal uptake. Lymph nodes: Radiotracer avid lymph nodes are identified in the left neck. Examples: At the level of the hyoid bone measuring 1.3 cm on series 3, image 46, SUV max 5.4 and in the left supraclavicular region measuring 3.1 cm in diameter on series 3, image 48 with peripheral uptake, SUV max 4.1. This lesion demonstrates central hypodensity. Mediastinal and bilateral hilar uptake is elevated, for example within an anterior lymph node adjacent to the ascending aorta measuring 1.2 cm on image 73, SUV max 3.4, and in the superior left hilum on image 73 anterior to the left pulmonary artery measuring approximately 1.2 cm in diameter, SUV max 4.4. Mild uptake in the right hilar region is noted without a well-defined lymph node, SUV max 3.2. A portacaval lymph node measuring 1.8 by 1.5 cm on series 3, image 111 is noted, SUV max 5.5; clustered radiotracer avid retroperitoneal lymph nodes in the periaortic space are noted for example on the right measuring 4.2 x 2.1 cm on series 3, image 116, SUV max 5.3. A mesenteric lymph node in the left abdomen measuring 1.6 x 1.3 cm is noted on series 3, image 121, SUV max 4.0. Bones/joints: No abnormal uptake in the visualized axial and appendicular skeleton. Postoperative changes of total left hip arthroplasty are noted. Non radiotracer avid areas of lucency in curvilinear sclerosis in the superior right femoral head are noted for example on series 3, image 161 in a region measuring 3.9 x 2.5 cm.There is mild diffuse vertebral body spondylosis. Severe right and mild left sternoclavicular joint primary osteoarthritic changes are noted. Serpiginous non radiotracer avid sclerotic density in the right femoral head is noted on series 3, image 56. Soft tissues: There are numerous radiotracer avid subcutaneous soft tissue density nodules involving the thorax and abdomen as well as the left shoulder region. For example a lesion adjacent to the left acromioclavicular joint measuring 2 cm on series 3, image 49 demonstrates an SUV max 4.9. An anterior right chest wall nodule measuring 2.2 cm on series 3, image 76 is present, SUV max 4.1; posterior left chest wall lesion on series 3, image 76 measuring 2.9 cm demonstrates uptake in its periphery, SUV max 3.6; subcutaneous posterosuperior left flank region on image 110 measuring 3.4 x 1.8 cm, SUV max 5.7; anterior abdomen on image 124 measuring 2.2 x 1.8 cm, SUV max 5.1. METRICS: Mediastinal blood pool: SUV max 2.2 Liver uptake: SUV max 3.0, SUV mean 2.4 [facility] INIT[facility] [id number] IMPRESSION: 1. Radiotracer avid lymphadenopathy in the left neck and within the chest and abdomen is consistent with the history of malignancy. 2. Numerous radiotracer avid subcutaneous nodules are identified diffusely compatible with malignancy. 3. Enlarged bilateral adrenal glands with elevated uptake consistent with malignancy. 4. Regions of new patchy density in the right hemithorax are noted with mildly elevated uptake. Infectious infiltrates or pneumonitis are favored in these regions. Neoplastic involvement is a less likely consideration. Non radiotracer avid areas of similar apparent mucous plugging within left lower lobe bronchi are also noted. 5. Non radiotracer avid areas of serpiginous sclerotic density in the right femoral head and right humeral head are noted compatible with avascular necrosis. 6. A non radiotracer avid area photopenia corresponding to a low-density region on the current and comparison CT images is present. This may represent a region of necrosis within a metastatic lesion. Consider MRI of the brain with and without contrast for more definitive assessment if this has not been performed. 7. Elevated uptake in the distal rectum and anus is noted which may be inflammatory and/or physiologic. The possibility malignancy is less likely but cannot be entirely excluded. 8. Additional nonurgent findings as detailed above.
== END 2023-06-18 06:40 | disposition home or self-care (01) ==
LOC: RAD 06-20 06:39
PROVIDERS: Visit Provider Internal Medicine Medical Oncology
DX: C4A.4 Merkel cell carcinoma of scalp and neck (principal)
CPT/HCPCS: 78815; A9552

== ENCOUNTER 2023-06-21 09:59 | Emergency (ER) | payer MEDICARE, MEDICAID, SELFPAY ==
--- NOTE | 2023-06-21 10:08 | ECG_ITS ---
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 Measurements Intervals Desmet Rate: 109 P: 0 WY: 0 QRS: 102 QRSD: 100 T: -35 QT: 290 QTc: 391 Interpretive Statements ATRIAL FIBRILLATION WITH RAPID VENTRICULAR RESPONSE RIGHT AXIS DEVIATION [QRS AXIS > 100] NONSPECIFIC ST & T-WAVE ABNORMALITY Compared to ECG 10/28/2022 11:52:15 Right-axis deviation now present T-wave abnormality still present Electronically Signed On 06-21-2023 17:32:44 CDT by Lalit Herrera M.D. [email or web address]
--- NOTE | 2023-06-21 10:08 | XRR_ITS ---
PROCEDURE INFORMATION: Exam: XR Chest Exam date and time: 06/21/2023 10:27 AM Age: 68 years old Clinical indication: Pain; Angina pectoris; Additional info: Chest pain TECHNIQUE: Imaging protocol: Radiologic exam of the chest. Views: 1 view. COMPARISON: CT chest w con* [id number] 05/16/2023 10:12 AM FINDINGS: Lungs: Calcified granuloma right upper lobe. Persistent opacity in the left lower lobe. Pleural spaces: Unremarkable. No pleural effusion. No pneumothorax. Heart/Mediastinum: Unremarkable. No cardiomegaly. Bones/joints: Healed left lateral rib fracture deformity. XR/XR chest 1V portable [id number] IMPRESSION: Persistent opacity left lower lobe.
[2023-06-21 10:21] LABS: Basophils % 0.3 %; Eosinophils # 0.1 10^3/uL (0.0-0.8); Eosinophils % 0.9 %; Hematocrit 35.6 % (42.0-52.0); Hemoglobin 11.6 g/dL (11.7-16.6); Lymphocytes # 1.8 10^3/uL (0.8-4.8); Lymphocytes % 16.8 %; Mean Corpuscular HGB Conc 32.6 g/dL (30.0-36.0); Mean Corpuscular Hemoglobin 29.7 pg (28.0-34.0); Mean Corpuscular Volume 91.3 fl (80-94); Mean Platelet Volume 9.8 fL (7.4-10.4); Monocytes # 0.7 10^3/uL (0.2-0.9); Neutrophils # 8.21 10^3/uL (1.8-7.7); Neutrophils % 75.4 %; Nucleated Red Blood Cells % 0 %; Platelet Count 175 10^3/cmm (130-400); Red Cell Distribution Width 13.5 % (12.1-15.1); White Blood Count 10.9 10^3/uL (4.0-10.0)
--- NOTE | 2023-06-21 10:45 | ED_ITS ---
HPI - Weakness General: Chief complaint: Weakness Stated complaint: Weakness Time Seen by Provider: 06/21/23 10:06 Source: patient Mode of arrival: EMS History of Present Illness: 68-year-old male presents to the emergency room complaining of weakness . He has a known diagnosis for [place] cell CA. He is getting palliative treatments and recently received some radiation for brain metastasis. of stage being given fentanyl patch as well as oxycodone has been excessively sedated is complaining of severe constipation. He denies any fever sweats chills cough has been nonproductive. Denies any hemoptysis. No dysuria urgency or frequency. He complains of some bloating in the abdomen but no pain. MD Complaint: generalized weakness Onset (ago): day(s) Associated symptoms: Reports decreased appetite and nausea; Denies chest pain, chills, confusion, melena, diaphoresis, dysuria, easy bruising, fever(s), headache(s), myalgias, rash, short of breath, syncope or vomiting Review of Systems Const: Reports: fatigue and malaise; Denies: fever(s), chills or diaphoresis ENMT: Denies: throat pain, ear or mastoid pain, nasal discharge or nasal congestion Card: Denies: chest pain, palpitations, irregular heart rhythm or syncope Resp: Denies: dyspnea, productive cough or non-productive cough GI: Reports: nausea; Denies: abdominal pain, vomiting, hematemesis or melena : Denies: flank pain, difficulty urinating, dysuria, urinary frequency or urinary urgency Skin/Breast: Denies: rash or pruritus Neuro: Denies: headache(s) or confusion Christopher/Lymph: Denies: easy bruising PFSH ED PFSH: Medical History Abnormal prostate exam ASHD (arteriosclerotic heart disease) Atrial fibrillation Basal cell carcinoma Benign prostatic hyperplasia without lower urinary tract symptoms Carotid stenosis, bilateral COPD (chronic obstructive pulmonary disease) Diabetes Dysuria GERD (gastroesophageal reflux disease) HIV (human immunodeficiency virus infection) HTN (hypertension) Hyperlipidemia Incomplete bladder emptying Male circumcision Polyuria Tobacco abuse Unspecified bulbous urethral stricture, male Urgency of urination Surgical History History of rectal surgery S/P carotid endarterectomy S/P hip replacement Family History Father , AGE 85 Stroke Hyperlipidemia Grandmother No problems noted. Grandfather CAD (coronary artery disease) PATERNAL Social History Smoking and tobacco status: former smoker Quit status (tobacco): has quit using tobacco Year quit tobacco: 1994 Former quit date comment: 1.5 pack per day x 35 yr Second hand smoke exposure: Yes Alcohol intake: current Alcohol intake frequency: 3 or more drinks per day Alcohol type: beer Substance/Drug Use: current Substance/Drug use frequency: daily Adopted: No Caregiver/support person: No Lives independently: Yes Marital status: Current occupational status: disabled Physical Exam Const: GENERAL APPEARANCE: cooperative ORIENTATION/CONSCIOUSNESS: Yes awake, Yes oriented to person, Yes oriented to place and Yes oriented to time HENMT: COMMON NORMALS: normocephalic, atraumatic and hearing grossly normal bilaterally HEAD & SCALP: normocephalic and atraumatic Resp: COMMON NORMALS: normal respiratory effort, No retractions, No use of accessory muscles and clear to auscultation bilaterally AUSCULTATION: clear to auscultation bilaterally Cardio: COMMON NORMALS: regular rate, regular rhythm and No murmurs present (Cardio) RATE: regular rate RHYTHM: regular rhythm GI: COMMON NORMALS: Soft to palpation and No hepatosplenomegaly present AUSCULTATION: Yes normoactive bowel sounds PALPATION: Yes Soft to palpation, No Tenderness to palpation present (GI), No Guarding due to palpation present (GI) and Yes No hepatosplenomegaly present Extremity: COMMON NORMALS: normal to inspection, capillary refill normal, no clubbing, cyanosis or edema, no calf tenderness and no pedal edema Neuro: SENSORIUM/ORIENTATION: Yes oriented to person, Yes oriented to place and Yes oriented to time Skin: COMMON NORMALS: no rashes or lesions noted GENERAL SKIN EXAM: no rashes or lesions noted Course Vital Signs: Vital signs: Vital Signs Pulse Rate 106 H 06/21/23 14:00 Respiratory Rate 11 L 06/21/23 14:00 Blood Pressure 105/63 06/21/23 14:00 Pulse Oximetry 96 06/21/23 14:00 Oxygen Delivery Me thod Room Air 06/21/23 12:33 MDM - Weakness Medical Decision Making Patient improved after fluids. He would like to go home. He is mildly anemic this is chronic he is also hyponatremic, Better than he has been in the past about near what appears to be his baseline. He is asymptomatic as far as hyponatremia goes. He is feeling better since receiving IV fluids he would like to go home discharge home continue the fentanyl patch only give oxycodone for breakthrough pain rather than scheduled. Use antiemetics as needed. They are discussing potentially putting him on hospice he has disseminated cancer with brain mets. Medical Records I reviewed the patient's medical records. Lab Data I reviewed the patient's lab results. 06/21/23 09:48 06/21/23 09:48 Radiology Impressions Chest X-Ray 06/21/23 10:08 IMPRESSION: Persistent opacity left lower lobe. KUB X-Ray 06/21/23 11:12 IMPRESSION: No acute change Laboratory Results WBC 10.9 10^3/uL (4.0-10.0) H 06/21/23 09:48 RBC 3.90 10^6/uL (4.1-5.3) L 06/21/23 09:48 Hgb 11.6 g/dL (11.7-16.6) L 06/21/23 09:48 Hct 35.6 % (42.0-52.0) L 06/21/23 09:48 MCV 91.3 fl (80-94) 06/21/23 09:48 MCH 29.7 pg (28.0-34.0) 06/21/23 09:48 MCHC 32.6 g/dL (30.0-36.0) 06/21/23 09:48 RDW 13.5 % (12.1-15.1) 06/21/23 09:48 Plt Count 175 10^3/cmm (130-400) 06/21/23 09:48 MPV 9.8 fL (7.4-10.4) 06/21/23 09:48 Neut % (Auto) 75.4 % 06/21/23 09:48 Lymph % (Auto) 16.8 % 06/21/23 09:48 [place] % (Auto) 6.0 % 06/21/23 09:48 Eos % (Auto) 0.9 % 06/21/23 09:48 Baso % (Auto) 0.3 % 06/21/23 09:48 Neut # (Auto) 8.21 10^3/uL (1.8-7.7) H 06/21/23 09:48 Lymph # (Auto) 1.8 10^3/uL (0.8-4.8) 06/21/23 09:48 [place] # (Auto) 0.7 10^3/uL (0.2-0.9) 06/21/23 09:48 Eos # (Auto) 0.1 10^3/uL (0.0-0.8) 06/21/23 09:48 Baso # (Auto) 0.0 10^3/uL (0.0-0.1) 06/21/23 09:48 Nucleated RBC % (auto) 0 % 06/21/23 09:48 Nucleated RBCs # 0.0 /100WBC 06/21/23 09:48 Sodium 130 mmol/L (136-145) L 06/21/23 09:48 Potassium 3.8 mmol/L (3.5-5.1) 06/21/23 09:48 Chloride 95 mmol/L (98-107) L 06/21/23 09:48 Carbon Dioxide 18 mmol/L (22-29) L 06/21/23 09:48 Anion Gap 20.8 (5-19) H 06/21/23 09:48 BUN 43 mg/dL (8-23) H 06/21/23 09:48 Creatinine 1.5 mg/dL (0.7-1.2) H 06/21/23 09:48 GFR Calculation 46.4 mL/min (90-130) L 06/21/23 09:48 Glucose 89 mg/dL (65-115) 06/21/23 09:48 Calculated Osmolality 280 mOsm/kg (285-295) L 06/21/23 09:48 Calcium 9.1 mg/dL (8.5-10.5) 06/21/23 09:48 Total Bilirubin 0.5 mg/dL (0.15-1.2) 06/21/23 09:48 AST 44 U/L (0-40) H 06/21/23 09:48 ALT 18 U/L (0-41) 06/21/23 09:48 Alkaline Phosphatase 64 U/L (40-130) 06/21/23 09:48 Troponin T Baseline 38 ng/L (0-15) H 06/21/23 09:48 Troponin T 120 Minute 38.54 ng/L (0-15) H 06/21/23 12:05 Delta Troponin T 0.54 ABS# (0-10) 06/21/23 12:05 Total Protein 6.5 g/dL (6.6-8.7) L 06/21/23 09:48 Albumin 3.2 g/dL (3.5-5.2) L 06/21/23 09:48 Globulin 3.3 g/dL (1.3-4.6) 06/21/23 09:48 Digoxin 0.8 ng/mL (0.6-1.2) 06/21/23 09:48 Discharge Plan Discharge Patient Disposition: Home Clinical Impression: [place] cell cancer, Secondary cancer of brain, Atrial fibrillation Condition: Stable Prescriptions: New ondansetron HCl 4 mg tablet 4 mg PO Q6H PRN (Reason: nausea and vomiting) Qty: 20 0RF No Action magnesium 250 mg tablet 250 mg PO DAILY ascorbic acid (vitamin C) 1,000 mg tablet 500 mg PO DAILY gemfibrozil 600 mg tablet 600 mg PO BID Spiriva with HandiHaler 18 mcg capsule, w/inhalation device 1 cap INHALATION DAILY cetirizine 10 mg tablet 5 mg PO DAILY PRN (Reason: Allergic Symptoms) tamsulosin [Flomax] 0.4 mg capsule 0.4 mg PO DAILY Intelence 200 mg tablet 200 mg PO BID mirtazapine 30 mg tablet 30 mg PO DAILY clonazepam 0.5 mg tablet 0.5 mg PO BID albuterol sulfate [ProAir HFA] 90 mcg/actuation HFA aerosol inhaler 2 puff INHALATION Q6H PRN (Reason: Allergy Symptoms) polysaccharide iron complex [Ferrex 150] 150 mg iron capsule 150 mg PO DAILY omeprazole 20 mg capsule,delayed release(DR/EC) 20 mg PO BID [place] 300 mg tablet 300 mg PO BID quetiapine [Seroquel] 100 mg tablet 200 mg PO DAILY amitriptyline 25 mg tablet 50 mg PO BEDTIME Stiolto Respimat 2.5-2.5 mcg/actuation mist 2 puff INHALATION DAILY B12 Active 1,000 mcg tablet,chewable 1,000 mcg PO DAILY ketoconazole 2 % cream 1 applic topical BID Qty: 30 2RF Rx Instructions: To pink scaly areas on face BID x 3 weeks then daily as needed (DME) DME: [facility] See Rx Instructions .Route Qty: 1 0RF Rx Instructions: As directed atorvastatin 40 mg tablet 40 mg PO DAILY Qty: 90 3RF doxazosin 2 mg tablet 2 mg PO DAILY Qty: 90 3RF digoxin 125 mcg (0.125 mg) tablet 125 mcg PO DAILY Qty: 90 3RF metoprolol tartrate 100 mg tablet 100 mg PO BID Qty: 180 3RF dexamethasone 4 mg tablet 4 mg PO BID Qty: 60 0RF oxycodone 15 mg tablet 15 mg PO QID PRN (Reason: pain) 30 Days Qty: 120 0RF fentanyl 25 mcg/hr patch 72 hour 1 patch transdermal Q72H 30 Days Qty: 10 0RF aspirin 81 mg tablet,delayed release (DR/EC) 81 mg PO DAILY metformin 500 mg tablet extended release 24 hr 500 mg PO DAILY calcium phos-vit D3-mag oxide 600 mg calcium- 500 unit-50 mg Tablet 1 tab PO DAILY Isentress HD 600 mg Tablet 600 mg PO BID Discharge Orders: Discharge ED (Routine); Ordered 06/21/23 Ordered By: Leland Coronado Discharge Diet: Advance as tolerated Discharge Activity: Increase activity as tolerated Patient Instructions: Opioid Safety, Pain Management Activity Restrictions/Additional Instructions: Continue the use of the fentanyl patch. You should only take oxycodone as needed if you have uncontrolled pain not scheduled. You can use any ondansetron for nausea and vomiting and [id number] milk of magnesia for relief of constipation follow-up with oncology. 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
[2023-06-21 10:46] LABS: Alanine Aminotransferase 18 U/L (0-41); Albumin Level 3.2 g/dL (3.5-5.2); Alkaline Phosphatase 64 U/L (40-130); Anion Gap 20.8 (5-19); Aspartate Amino Transferase 44 U/L (0-40); Blood Urea Nitrogen 43 mg/dL (8-23); Calcium 9.1 mg/dL (8.5-10.5); Carbon Dioxide 18 mmol/L (22-29); Chloride 95 mmol/L (98-107); Globulin 3.3 g/dL (1.3-4.6); Glomerular Filtration Rate 46.4 mL/min (90-130); Glucose 89 mg/dL (65-115); Osmolality Calculated 280 mOsm/kg (285-295); Potassium 3.8 mmol/L (3.5-5.1); Sodium 130 mmol/L (136-145); Total Bilirubin 0.5 mg/dL (0.15-1.2); Total Protein 6.5 g/dL (6.6-8.7)
[2023-06-21 10:47] LABS: Troponin(5th) Baseline 38 ng/L (0-15)
[2023-06-21] MEDS: aspirin 81 mg Chew Tablet 324 MG PO (10:53)
--- NOTE | 2023-06-21 11:12 | XR_ITS ---
WS: [id number] EXAMINATION: XR KUB portable [id number] REASON FOR EXAM: abd pain COMPARISON: 07/05/2013 ORDER DATE: 06/21/2023 11:25 AM FINDINGS: There is a nonspecific colonic gas pattern with scattered fecal content and gas. There is no sign of significant small bowel dilation. No pathologic abdominal calcification is seen. Left hip prosthesi s unchanged. XR/XR KUB portable [id number] IMPRESSION: No acute change
[2023-06-21 11:16] LABS: Digoxin 0.8 ng/mL (0.6-1.2)
[2023-06-21] MEDS: sodium chloride 0.9% 1,000 ML 999 ML IV (11:44)
--- NOTE | 2023-06-21 12:08 | ECG_ITS ---
[facility] Test Date: 2023-06-21 Pat Name: Shimon Alvarez Department: Room: Gender: Male Sales Contracts Analyst: : [id number] Requested By: Leland Vickers Order Number: [id number] Marvel MD: Lalit Herrera M.D. Measurements Intervals Opp Rate: 102 P: 0 IA: 0 QRS: 102 QRSD: 105 T: -59 QT: 295 QTc: 386 Interpretive Statements ATRIAL FIBRILLATION WITH RAPID VENTRICULAR RESPONSE WITH ABERRANT CONDUCTION OR VENTRICULAR PREMATURE COMPLEXES RIGHT AXIS DEVIATION [QRS AXIS > 100] ST DEVIATION AND MODERATE T-WAVE ABNORMALITY, CONSIDER INFERIOR ISCHEMIA [-0.1+ mV T-WAVE IN II/aVF] Compared to ECG 06/21/2023 10:23:13 Ventricular premature complex(es) now present Aberrant conduction of supraventricular beat(s) now present Possible ischemia now present T-wave abnormality still present Electronically Signed On 06-21-2023 17:38:25 CDT by Lalit Herrera M.D. [email or web address]
[2023-06-21 12:33] VITALS: BP 142/61; PULSE 108; RESP 16; O2SAT 91
[2023-06-21 12:40] LABS: Troponin 5 2HR 38.54 ng/L (0-15)
[2023-06-21 12:44] LABS: Troponin 5 2HR Delta 0.54 ABS# (0-10)
[2023-06-21 13:06] VITALS: BP 126/65; PULSE 105; RESP 23; O2SAT 95
[2023-06-21 13:30] VITALS: BP 121/71; PULSE 105; RESP 22; O2SAT 92
[2023-06-21 14:00] VITALS: BP 105/63; PULSE 106; RESP 11; O2SAT 96
--- NOTE | 2023-06-22 14:40 | DCPLANNER ---
retail general manager called patient due to no primary care physician - no answer at this time
== END 2023-06-21 14:26 | disposition home or self-care (01) ==
PROVIDERS: Emergency Provider Family Medicine
DX: C4A.9 Merkel cell carcinoma, unspecified (principal); C79.31 Secondary malignant neoplasm of brain; I48.91 Unspecified atrial fibrillation; Z79.82 Long term (current) use of aspirin; Z79.84 Long term (current) use of oral hypoglycemic drugs; Z87.891 Personal history of nicotine dependence; J44.9 Chronic obstructive pulmonary disease, unspecified; E11.9 Type 2 diabetes mellitus without complications; B20 Human immunodeficiency virus [HIV] disease; I10 Essential (primary) hypertension; E78.5 Hyperlipidemia, unspecified
CPT/HCPCS: 36415; 71045; 74018; 80053; 80162; 84484; 85025; 93005; 99285; J7030